=== PATIENT | female | born 1970 | race Caucasian/White ===

== ENCOUNTER 2016-12-15 09:12 | Inpatient (IN) | payer BC, MEDICAID ==
[2016-12-15] MEDS ORDERED: Iohexol 240 (50 ml) PO ONE (09:33)
[2016-12-15] MEDS ORDERED: Sodium Chloride 0.9% 1,000 ML IV SCH (09:45)
--- NOTE | 2016-12-15 09:53 | ED PDOC ---
HPI: Abdomen Time Seen by Provider: 12/15/16 09:20 Chief Complaint (Nursing): Fever Chief Complaint (Provider): Fever History Per: Patient, Family History/Exam Limitations: no limitations Onset/Duration Of Symptoms: Hrs Current Symptoms Are (Timing): Still Present Severity: Mild Quality Of Discomfort: "Pain" Associated Symptoms: Fever, Back Pain, Urinary Symptoms. denies: Nausea, Vomiting Exacerbating Factors: None Alleviating Factors: None Additional Complaint(s): Patient is a 46 year old female who presents to ED with family for evaluation of fever and abdominal pain at 0300 today. Patient had an abdominal mass removed from her right lower abdomen on 12/08/[address] Ledezma with drain placed. States taking Percocet as needed for pain but at 0300 developed increased pain and felt like she may have a fever, a Percocet tablet was taken at this time. As per family, surgeon was contacted who referred to ED for further evaluation. Family also reports that it appears the drain may have shifted a bit but continues to drain clear, no blood. Follow up appointment with surgeon is scheduled for tomorrow. No nausea, vomit, diarrhea, weakness, headaches, dizziness, chest pain, dyspnea. Has dysuria mild. PMD: Dr. Gastelum Surgeon: DR. Angel Ledezma [phone] As per discharge notes, patient received a laproscopic surgery to remove an inta -abdominal swelling, mass or lump, instructed to take Percocet Past Medical History Reviewed: Historical Data, Nursing Documentation, Vital Signs Vital Signs: Last Vital Signs Temp 100.1 F H 12/15/16 10:23 Pulse 112 H 12/15/16 10:23 Resp 18 12/15/16 10:23 BP 126/74 12/15/16 10:23 Pulse Ox 99 12/15/16 13:56 - Medical History PMH: Back Problems - Surgical History Surgical History: Back Surgery, Cholecystectomy, Other surgeries: abd surgery; ankle surgery - Family History Family History: States: Unknown Family Hx - Living Arrangements Living Arrangements: With Family - Immunization History Hx Tetanus Toxoid Vaccination: No Hx Influenza Vaccination: No Hx Pneumococcal Vaccination: No - Allergies Allergies/Adverse Reactions: Allergies Allergy/AdvReac Type Severity Reaction Status Date / Time No Known Allergies Allergy Verified 12/15/16 09:31 Review of Systems ROS Statement: Except As Marked, All Systems Reviewed And Found Negative Constitutional: Positive for: Fever Gastrointestinal: Positive for: Abdominal Pain. Negative for: Nausea, Vomiting , Diarrhea Genitourinary Female: Positive for: Dysuria. Negative for: Hematuria Musculoskeletal: Positive for: Back Pain Neurological: Negative for: Weakness, Numbness Physical Exam - Reviewed Nursing Documentation Reviewed: Yes Vital Signs Reviewed: Yes - Physical Exam Appears: Positive for: Uncomfortable Skin: Positive for: Normal Color, Warm. Negative for: Rash Eye Exam: Positive for: Normal appearance Neck: Positive for: Normal, Painless ROM Cardiovascular/Chest: Positive for: Regular Rate, Rhythm, Tachycardia. Negative for: Murmur Respiratory: Positive for: Normal Breath Sounds. Negative for: Respiratory Distress Gastrointestinal/Abdominal: Positive for: Soft, Tenderness (mild diffuse), Other (Drain in place RLQ with clear drainage (-) erythema (-) fluctuance (-) induration. Several laproscopic incision lower abdomen all clean, dry and intact with no surrounding erythema ). Negative for: Mass, Guarding, Rebound Back: Negative for: Normal Inspection, L CVA Tenderness, R CVA Tenderness Extremity: Positive for: Normal ROM. Negative for: Tenderness, Pedal Edema, Calf Tenderness Neurologic/Psych: Positive for: Alert, Oriented - Laboratory Results Result Diagrams: 12/15/16 10:10 12/15/16 10:10 Interpretation Of Abn Labs: 12.9 wbc; urine wbc - ECG ECG: Positive for: Interpreted By Me, Viewed By Me ECG Rhythm: Positive for: Normal QRS, Sinus Tachycardia O2 Sat by Pulse Oximetry: 99 (RA) Pulse Ox Interpretation: Normal - Radiology X-Ray: Interpreted by Me, Viewed By Me X-Ray Interpretation: No Acute Disease - Progress ED Course And Treament: 1354: Pt. pcp Dr. Wade Islas. Spoke Dr. Angel Ledezma. Pt. well known to him as he did the surgery. Made aware of all findings, presentation, and ct. States Ct findings and labs are likely post surgical. Recommends outpt. for cipro and flagyl or 24hrs of IV antibiotics of the same. 1401: Spoke with Dr. Craven. Will admit and give further orders when pt. reaches floor. Pt. lactate improved. Meets severe sepsis criteria. Cipro and flagyl. Stable. Will give morphine for pain. AAOx3. 1426: Stable. Dr. Mathews paged. Surgery resident also paged for consult. - Critical Care Total Time (In Min): 30 Documented Critical Care: Time excludes all time spent performint seperately billable procedures Medical Decision Making Medical Decision Making: Time: 929 Initial impression: Fever s/p surgery will work up for sepsis Initial plan: -- VBG -- CT-abdomen -- EKG -- CMP -- Magnesium -- Phosphorous -- Troponin -- Urine preg -- Urine dip -- CBC -- PT/PTT -- CXR -- NSF, Morphine -- Blood culture -- Urine culture -- Cardiac monitoring -- U/A Scribe Attestation: Documented by Meghan Brito acting as a scribe for Kulwinder Hernandez MD MD Scribe Attestation: All medical record entries made by the Scribe were at my direction and personally dictated by me. I have reviewed the chart and agree that the record accurately reflects my personal performance of the history, physical exam, medical decision making, and the department course for this patient. I have also personally directed, reviewed, and agree with the discharge instructions and disposition. Disposition - Clinical Impression Clinical Impression: Severe sepsis, Abdominal pain, Inflammation, UTI (urinary tract infection) - Patient ED Disposition Is Patient to be Admitted: Yes Counseled Patient/Family Regarding: Studies Performed, Diagnosis - Disposition Disposition Time: 14:09 Condition: FAIR - Pt Status Changed To: Hospital Disposition Of: Inpatient - Admit Certification Admit to Inpatient:: After my assessment, the patient will require hospitalization for at least two midnights. This is because of the severity of symptoms shown, intensity of services needed, and/or the medical risk in this patient being treated as an outpatient. - POA Present On Arrival: Surgical Site Infection
[2016-12-15 09:55] VITALS: BMI 25.7
[2016-12-15 10:11] LABS: VENOUS BLOOD GAS BASE EXCESS 2.8 mmol/L (0.0-2.0); VENOUS BLOOD GAS PCO2 40 mmHg (40-60); VENOUS BLOOD PH 7.44 (7.32-7.43)
--- NOTE | 2016-12-15 10:37 | CARD ---
APPROVED REPORT EKG Measurement Heart [id number] <Conclusion> Sinus tachycardia Otherwise normal ECG
[2016-12-15 10:40] LABS: BASO % 0.2 % (0.0-2.0); EOS # 0.7 K/uL (0.0-0.7); EOS % 5.4 % (0.0-4.0); HEMATOCRIT 37.9 % (34.0-47.0); LYMPH # 0.8 K/uL (1.0-4.3); LYMPH % 6.3 % (20.0-40.0); MEAN CELL VOLUME 81.7 fl (81.0-99.0); MEAN CORPUSCULAR HEMOGLOBIN 27.4 pg (27.0-31.0); MEAN CORPUSCULAR HGB CONC 33.5 g/dL (33.0-37.0); MEAN PLATELET VOLUME 7.9 fl (7.2-11.7); MONO # 0.8 K/uL (0.0-0.8); MONO % 6.4 % (0.0-10.0); NEUT # 10.5 K/uL (1.8-7.0); NEUT % 81.7 % (50.0-75.0); PLATELET COUNT 313 K/uL (130-400); RED CELL DISTRIBUTION WIDTH 13.3 % (11.5-14.5); WHITE BLOOD COUNT 12.9 K/uL (4.8-10.8)
[2016-12-15 11:01] LABS: PARTIAL THROMBOPLASTIN TIME 30.2 SECONDS (23.3-32.5)
[2016-12-15 11:08] LABS: ALB/GLOB RATIO 1.2 (1.0-2.1); ALKALINE PHOSPHATASE 95 U/L (38-126); ALT/SGPT 44 U/L (9-52); AST/SGOT 22 U/L (14-36); BILIRUBIN,TOTAL 0.5 mg/dl (0.2-1.3); BLOOD UREA NITROGEN 7 mg/dl (7-17); CALCIUM 9.7 mg/dL (8.4-10.2); CARBON DIOXIDE 23 mmol/L (22-30); CHLORIDE 100 mmol/L (98-107); GFR AFRICAN-AMERICAN > 60; GLUCOSE,RANDOM 100 mg/dL (65-105); MAGNESIUM 1.6 MG/DL (1.6-2.3); PHOSPHOROUS 3.7 mg/dl (2.5-4.5); POTASSIUM 3.7 MMOL/L (3.6-5.0); SODIUM 137 mmol/l (132-148); TOTAL PROTEIN 8.1 G/DL (6.3-8.2)
[2016-12-15 12:16] LABS: EOSINOPHIL 4 % (0-7); NEUTROPHIL 82 % (42-75); TOTAL CELLS COUNTED 100
[2016-12-15] MEDS ORDERED: Iohexol 300 50 ML ONE (12:17)
[2016-12-15] MEDS ORDERED: Sodium Chloride 0.9% 50 ML IV ONE (12:17)
[2016-12-15 12:46] LABS: URINE BILIRUBIN NEGATIVE (NEGATIVE); URINE BLOOD NEGATIVE (NEGATIVE); URINE COLOR YELLOW (YELLOW); URINE GLUCOSE (UA) NEG (Normal); URINE KETONE NEGATIVE (NEGATIVE); URINE LEUKOCYTE ESTERASE SMALL Leu/uL (Negative); URINE PROTEIN NEGATIVE (NEGATIVE); URINE UROBILINOGEN 0.2-1.0 mg/dL (0.2-1.0); WBC URINE 15 /hpf (0-5)
--- NOTE | 2016-12-15 13:33 | CT ---
PROCEDURE: CT Abdomen and Pelvis with contrast HISTORY: Postop abdominal pain. Relevant surgical history: Resection of presacral dermoid. COMPARISON: Preoperative examination 12/08/2015. TECHNIQUE: Contrast dose: 95 cc Omnipaque 300. Radiation dose: Total exam DLP = 1048.31 mGy-cm. This CT exam was performed using one or more of the following dose reduction techniques: Automated exposure control, adjustment of the mA and/or kV according to patient size, and/or use of iterative reconstruction technique. FINDINGS: LOWER THORAX: Small hiatal hernia. LIVER: Unremarkable. No gross lesion or ductal dilatation. GALLBLADDER AND BILE DUCTS: Unremarkable. PANCREAS: Unremarkable. No gross lesion or ductal dilatation. SPLEEN: Unremarkable. ADRENALS: Unremarkable. No mass. KIDNEYS AND URETERS: Unremarkable. No hydronephrosis. No solid mass. VASCULATURE: Unremarkable. No aortic aneurysm. BOWEL: Focal thickening of the wall of the rectum at at the surgical site. This appears to extend from the rectosigmoid junction over a distance of 5 cm. The anal rectal verge region is spared. APPENDIX: Normal appendix. PERITONEUM: Trace, loculated fluid in the cul-de-sac T uterus with posterior wall of the bladder and anterior wall of the rectum. This measures 2.9 x 1.8 cm. Hounsfield unit values 0.25 consistent with uncomplicated fluid. Surgical drain identified coursing from its insertion site right lower quadrant crossing the midline with the tip in the left hemipelvis. At the site of the catheter insertion into the peritoneum M better mild inflammatory changes in the fat adjacent to the cecum. No abnormalities with respect to the adjacent terminal ileum or appendix. LYMPH NODES: Unremarkable. No enlarged lymph nodes. BLADDER: Unremarkable. REPRODUCTIVE: Prior hysterectomy. BONES: OTHER FINDINGS: Postoperative findings in the presacral region status post resection of pelvic/ presacral mass. IMPRESSION: Postoperative findings in the abdomen and pelvis as described. Small collection of fluid in the cul-de-sac. Inflammatory changes in the postoperative bed circumferentially involving a short segment of the rectum. No proximal obstruction identified.
[2016-12-15 13:53] LABS: VENOUS BLOOD GAS BASE EXCESS 1.9 mmol/L (0.0-2.0); VENOUS BLOOD GAS PCO2 41 mmHg (40-60); VENOUS BLOOD PH 7.42 (7.32-7.43)
[2016-12-15] MEDS ORDERED: Ciprofloxacin 400mg/200ml D5W 400 MG/200 ML BAG IV STA (14:07)
[2016-12-15] MEDS ORDERED: metroNIDAZOLE 500mg/100ml NS 100 ML IV STA (14:07)
--- NOTE | 2016-12-15 14:32 | RAD ---
HISTORY: Sepsis Patient . Portable study 13:00. COMPARISON: No prior. FINDINGS: LUNGS: No active pulmonary disease. PLEURA: No significant pleural effusion identified, no pneumothorax apparent. CARDIOVASCULAR: Normal. OSSEOUS STRUCTURES: No significant abnormalities. VISUALIZED UPPER ABDOMEN: Normal. OTHER FINDINGS: None. IMPRESSION: No active disease.
--- NOTE | 2016-12-15 15:49 | CP.PCM.CON ---
<Beau Pham - Last Filed: 12/15/16 17:03> History of Present Illness - History of Present Illness History of Present Illness: General Surgery consult Note for Dr. Mathews CC: Abdominal Pain HPI: This is a 46F with no PMH who had an intrabdominal mass removed laparoscopicaly at [facility] 8 days ago. She was discharged with instruction to take percocet for pain. She is schedules for a followup appointment with her surgeon tomorrow. She presents today with abdominal pain per his discharge instruction to go to the ED if she has any pain. She denies any fevers at home. She is moving her bowels and passing flatus. CT abdomen was done in the ED which was significant for inflammation in the post operative bed involving a short segment of her rectum. She reports chest pain and shortness of breath this morning. Her troponins, EKG and chest X-ray are all negative for any acute processes. PMH: Denies PSH: , Cholecystectomy, oopherectomy, Intrabdominal mass removal, Cervical spine surgery, leg surgery ALL: Denies Social: Denies tobacco, ethanol, drugs Review of Systems - Constitutional Constitutional: absent: Anorexia, Chills - EENT Eyes: absent: Blurred Vision, Change in Vision Ears: absent: Ear Pain, Tinnitus Nose/Mouth/Throat: absent: Nasal Congestion, Nasal Discharge - Cardiovascular Cardiovascular: Chest Pain, Dyspnea - Respiratory Respiratory: Dyspnea - Gastrointestinal Gastrointestinal: Abdominal Pain, Nausea. absent: Change in Bowel Habits, Constipation, Loose Stools, Vomiting - Neurological Neurological: absent: Dizziness Past Patient History - Past Social History Smoking Status: Never Smoked - PSYCHIATRIC Hx Substance Use: No - SURGICAL HISTORY Hx Cholecystectomy: Yes - ANESTHESIA Hx Anesthesia: Yes Hx Anesthesia Reactions: No Meds Allergies/Adverse Reactions: Allergies Allergy/AdvReac Type Severity Reaction Status Date / Time No Known Allergies Allergy Verified 12/15/16 09:31 - Medications Medications: Current Medications Sodium Chloride (Sodium Chloride 0.9%) 1,000 mls @ 1,000 mls/hr IV .Q1H MANPREET Last Admin: 12/15/16 09:56 Dose: 1,000 mls/hr Physical Exam - Constitutional Appears: Non-toxic, No Acute Distress - Head Exam Head Exam: ATRAUMATIC, NORMOCEPHALIC - Eye Exam Eye Exam: EOMI - ENT Exam ENT Exam: Mucous Membranes Moist - Respiratory Exam Respiratory Exam: NORMAL BREATHING PATTERN - Cardiovascular Exam Cardiovascular Exam: REGULAR RHYTHM - GI/Abdominal Exam GI & Abdominal Exam: Soft, Tenderness. absent: Distended, Firm, Guarding, Hernia, Rebound, Rigid Additional comments: Port sites well aproximated non erythematous, Right sided TIGRE drain in place with serous output in drain and purulend drainage around the drain - Extremities Exam Extremities exam: Positive for: normal inspection - Neurological Exam Neurological exam: Alert - Psychiatric Exam Psychiatric exam: Normal Affect, Normal Mood - Skin Skin Exam: Dry, Intact Results - Vital Signs Recent Vital Signs: Last Vital Signs Temp 100.1 F H 12/15/16 10:23 Pulse 112 H 12/15/16 10:23 Resp 18 12/15/16 10:23 BP 126/74 12/15/16 10:23 Pulse Ox 99 12/15/16 14:27 - Labs Result Diagrams: 12/15/16 10:10 12/15/16 10:10 Labs: Laboratory Results - last 24 hr 12/15/16 12/15/16 12:28 13:50 pO2 33 VBG pH 7.42 VBG pCO2 41 VBG HCO3 25.5 VBG Total CO2 27.9 VBG O2 Sat (Calc) 73.1 H VBG Base Excess 1.9 VBG Potassium 3.6 A-a O2 Difference 65.0 Sodium 133.0 Chloride 101.0 Glucose 96 Lactate 1.8 FiO2 21.0 Crit Value Called To Dr сергей spangler Crit Value Called By 15 Crit Value Read Back Y Blood Gas Notified Time 1352 Venous Blood Potassium 3.6 Urine Color Yellow Urine Clarity Slighty-cloudy Urine pH 6.0 Ur Specific [place] 1.010 Urine Protein Negative Urine Glucose (UA) Neg Urine Ketones Negative Urine Blood Negative Urine Nitrate Negative Urine Bilirubin Negative Urine Urobilinogen 0.2-1.0 Ur Leukocyte Esterase Small Urine Microscopic WBC 15 H Ur Squamous Epith Cells 19 H - Imaging and Cardiology CT scan - abdomen Status: Image reviewed by me, Report reviewed by me Assessment & Plan - Assessment and Plan (Free Text) Assessment: This is a 46F who is s/p laparoscopic surgery presenting with post operative pain CT scan significant for surgical site inflammatory changes Afebrile, WBC 12.9, Tachycardic at 112bpm IV ABX, ain control Bedside evacuation of purulent exhudate Will discuss with Dr. Mathews Beau Pham PGY-4 <Tone Mathews - Last Filed: 12/19/16 19:00> Meds - Medications Medications: Current Medications Acetaminophen (Tylenol 325mg Tab) 325 mg PO Q6 PRN PRN Reason: Fever >100.4 F Last Admin: 12/17/16 01:41 Dose: 325 mg Diphenhydramine HCl (Benadryl) 25 mg IVP Q6H PRN PRN Reason: Itching / Pruritus Last Admin: 12/19/16 14:15 Dose: 25 mg Enoxaparin Sodium (Lovenox) 40 mg SC DAILY MANPREET PRN Reason: Protocol Last Admin: 12/19/16 08:24 Dose: 40 mg Hydromorphone HCl (Dilaudid) 1 mg IVP Q3H PRN PRN Reason: Pain, moderate (4-7) Last Admin: 12/19/16 18:49 Dose: 1 mg Metronidazole (Flagyl 500mg/100ml Ns) 100 mls @ 100 mls/hr IVPB Q8 [facility] Last Admin: 12/19/16 17:09 Dose: 100 mls/hr Lactated Ringer's (Lactated Ringer's) 1,000 mls @ 75 mls/hr IV .[id number] [facility] Last Admin: 12/19/16 09:31 Dose: 75 mls/hr Piperacillin Sod/Tazobactam (Sod 3.375 gm/ Sodium Chloride) 100 mls @ 100 mls/ hr IVPB Q8 [facility] Last Admin: 12/19/16 16:08 Dose: 100 mls/hr Ketorolac Tromethamine (Toradol) 30 mg IVP Q6 [facility] Stop: 12/21/16 16:00 Last Admin: 12/19/16 16:09 Dose: Not Given Results - Vital Signs Recent Vital Signs: Last Vital Signs Temp 99.0 F 12/19/16 15:52 Pulse 86 12/19/16 15:52 Resp 18 12/19/16 15:52 BP 115/76 12/19/16 15:52 Pulse Ox 96 12/19/16 15:52 - Labs Result Diagrams: 12/19/16 06:30 12/19/16 06:30 Labs: Laboratory Results - last 24 hr 12/19/16 12/19/16 06:30 06:30 WBC 9.1 RBC 3.74 L Hgb 10.1 L Hct 30.9 L MCV 82.6 MCH 27.0 MCHC 32.6 L RDW 13.4 Plt Count 335 Sodium 140 Potassium 3.5 L Chloride 103 Carbon Dioxide 29 Anion Gap 12 BUN 6 L Creatinine 0.5 L Est GFR ( Amer) > 60 Est GFR (Non-Af Amer) > 60 Random Glucose 97 Calcium 8.4 Total Bilirubin 0.2 AST 20 ALT 25 Alkaline Phosphatase 71 Total Protein 6.0 L Albumin 2.9 L Globulin 3.1 Albumin/Globulin Ratio 0.9 L Attending/Attestation - Attestation I have personally seen and examined this patient.: Yes I have fully participated in the care of the patient.: Yes I have reviewed all pertinent clinical information: Yes Notes (Text): 12/19/16 18:58 Pt was seen and examined at bedside on 12/15/16 Agree with above note and assessment Pt with Sepsis with Abdominal wall Cellulitis IV antibiotic Labs and radiology reviewed Repeat CBC in am Plan d/w pt and ER physician in detail. Risk and benefit explained in detail.
[2016-12-15] MEDS ORDERED: Ciprofloxacin 400mg/200ml D5W 400 MG/200 ML BAG IVPB ONE (16:05)
[2016-12-15] MEDS ORDERED: Bupivacaine-Epi 0.5%-1:200,000 PF Inj IJ ONE (17:03)
[2016-12-15] MEDS ORDERED: Lidocaine 2% w Epi 1:100,000 Inj IJ ONE (17:05)
[2016-12-15] MEDS ORDERED: Lidocaine/Epi 1% 1:100000 20 ML IJ ONE (17:06)
[2016-12-15] MEDS ORDERED: metroNIDAZOLE 500mg/100ml NS 100 ML IVPB ONE (18:40)
[2016-12-16] MEDS ORDERED: Sodium Chloride 0.9% 1,000 ML IV ONE (00:04)
[2016-12-16] MEDS: metroNIDAZOLE 500mg/100ml NS 100 ML IVPB SCH ×3 (01:50→17:47)
--- NOTE | 2016-12-16 07:50 | CP.PCM.PN ---
<Milo Auguste - Last Filed: 12/16/16 13:48> Subjective - Date & Time of Evaluation Date of Evaluation: 12/16/16 Time of Evaluation: 07:48 - Subjective Subjective: Patient seen and examined this morning. Currently patient complaining of some abdominal pain, well controlled with pain medication. Tmax: 102.9F. No active purulent drainage from around drain site. However there skin around drain site is erythematous, will incise and drain. Objective - Vital Signs/Intake and Output Vital Signs (last 24 hours): Temp Pulse Resp BP Pulse Ox 99.2 F 109 H 22 104/67 99 12/16/16 05:15 12/16/16 05:15 12/16/16 05:15 12/16/16 05:15 12/16/16 05:15 - Medications Medications: Current Medications Acetaminophen (Tylenol 325mg Tab) 325 mg PO Q6 PRN PRN Reason: Fever >100.4 F Last Admin: 12/16/16 00:00 Dose: 325 mg Sodium Chloride (Sodium Chloride 0.9%) 1,000 mls @ 1,000 mls/hr IV .Q1H MANPREET Last Admin: 12/15/16 09:56 Dose: 1,000 mls/hr Metronidazole (Flagyl 500mg/100ml Ns) 100 mls @ 100 mls/hr IVPB Q8 [facility] Last Admin: 12/16/16 01:50 Dose: 100 mls/hr Meropenem 1 gm/ Sodium (Chloride) 100 mls @ 100 mls/hr IVPB Q8 [facility] Vancomycin HCl 1 gm/ Sodium (Chloride) 250 mls @ 166.667 mls/hr IVPB STAT STA Stop: 12/16/16 08:12 Last Admin: 12/16/16 06:51 Dose: 166.667 mls/hr Sodium Chloride (Sodium Chloride 0.9%) 1,000 mls @ 150 mls/hr IV .[id number] [facility] Stop: 12/17/16 06:45 Morphine Sulfate (Morphine) 4 mg IVP Q6 PRN PRN Reason: Pain, severe (8-10) Last Admin: 12/15/16 22:57 Dose: 4 mg - Labs Labs: PT 10.5 SECONDS (9.6-11.2) 12/15/16 10:10 INR 1.01 (0.92-1.08) 12/15/16 10:10 APTT 30.2 SECONDS (23.3-32.5) 12/15/16 10:10 - Constitutional Appears: No Acute Distress - Head Exam Head Exam: NORMOCEPHALIC - Eye Exam Eye Exam: Normal appearance - ENT Exam ENT Exam: Mucous Membranes Moist - Respiratory Exam Respiratory Exam: NORMAL BREATHING PATTERN - Cardiovascular Exam Cardiovascular Exam: Tachycardia, +S1, +S2 - GI/Abdominal Exam GI & Abdominal Exam: Soft, Tenderness Additional comments: Drain contains dark zacarias fluid Assessment and Plan - Assessment and Plan (Free Text) Assessment: 46F s/p removal of sacro-coccygeal teratoma, presents with fever, abdominal pain , and drain site cellulitis Plan: -I&D at drain site -F/u repeat UA, f/u blair cultures -C/w Abx as per ID -Tylenol prn for fever -Monitor drain output -F/u AM labs -D/w Dr. Mathews <Tone Mathews - Last Filed: 12/19/16 19:06> Objective - Vital Signs/Intake and Output Vital Signs (last 24 hours): Temp Pulse Resp BP Pulse Ox 99.0 F 86 18 115/76 96 12/19/16 15:52 12/19/16 15:52 12/19/16 15:52 12/19/16 15:52 12/19/16 15:52 - Medications Medications: Current Medications Acetaminophen (Tylenol 325mg Tab) 325 mg PO Q6 PRN PRN Reason: Fever >100.4 F Last Admin: 12/17/16 01:41 Dose: 325 mg Diphenhydramine HCl (Benadryl) 25 mg IVP Q6H PRN PRN Reason: Itching / Pruritus Last Admin: 12/19/16 14:15 Dose: 25 mg Enoxaparin Sodium (Lovenox) 40 mg SC DAILY MANPREET PRN Reason: Protocol Last Admin: 12/19/16 08:24 Dose: 40 mg Hydromorphone HCl (Dilaudid) 1 mg IVP Q3H PRN PRN Reason: Pain, moderate (4-7) Last Admin: 12/19/16 18:49 Dose: 1 mg Metronidazole (Flagyl 500mg/100ml Ns) 100 mls @ 100 mls/hr IVPB Q8 [facility] Last Admin: 12/19/16 17:09 Dose: 100 mls/hr Lactated Ringer's (Lactated Ringer's) 1,000 mls @ 75 mls/hr IV .[id number] [facility] Last Admin: 12/19/16 09:31 Dose: 75 mls/hr Piperacillin Sod/Tazobactam (Sod 3.375 gm/ Sodium Chloride) 100 mls @ 100 mls/ hr IVPB Q8 [facility] Last Admin: 12/19/16 16:08 Dose: 100 mls/hr Ketorolac Tromethamine (Toradol) 30 mg IVP Q6 [facility] Stop: 12/21/16 16:00 Last Admin: 12/19/16 16:09 Dose: Not Given - Labs Labs: 12/19/16 06:30 12/19/16 06:30 PT 10.5 SECONDS (9.6-11.2) 12/15/16 10:10 INR 1.01 (0.92-1.08) 12/15/16 10:10 APTT 30.2 SECONDS (23.3-32.5) 12/15/16 10:10 Attending/Attestation - Attestation I have personally seen and examined this patient.: Yes I have fully participated in the care of the patient.: Yes I have reviewed all pertinent clinical information, including history, physical exam and plan: Yes Notes (Text): 12/19/16 19:04 Pt was seen and examined at bedside on 12/16/16 Agree with above note and assessment Pt is s/p Pelvic teratoma removal with abdominal wall cellulitis at drain site Repeat CT Scan in am in WBC does not improve Repeat CBC and BMP ID consult Pt still has high fever NPO, IVF Plan d/w pt in detail. Risk and benefit explained in detail.
[2016-12-16] MEDS ORDERED: Ciprofloxacin 400mg/200ml D5W 400 MG/200 ML BAG IVPB SCH (09:00)
[2016-12-16 09:15] LABS: BASO % 0.2 % (0.0-2.0); EOS # 0.8 K/uL (0.0-0.7); EOS % 4.9 % (0.0-4.0); HEMATOCRIT 35.3 % (34.0-47.0); LYMPH # 0.7 K/uL (1.0-4.3); LYMPH % 4.4 % (20.0-40.0); MEAN CELL VOLUME 82.6 fl (81.0-99.0); MEAN CORPUSCULAR HEMOGLOBIN 26.9 pg (27.0-31.0); MEAN CORPUSCULAR HGB CONC 32.6 g/dL (33.0-37.0); MEAN PLATELET VOLUME 8.2 fl (7.2-11.7); MONO # 1.1 K/uL (0.0-0.8); MONO % 6.7 % (0.0-10.0); NEUT # 13.4 K/uL (1.8-7.0); NEUT % 83.8 % (50.0-75.0); NRBC % 0.1 % (0.0-0.0); RED CELL DISTRIBUTION WIDTH 13.5 % (11.5-14.5)
[2016-12-16] MEDS: Meropenem 1 GM in Sodium Chloride 0.9% 100 ML IVPB SCH ×2 (09:20→17:46)
[2016-12-16 09:39] LABS: ALB/GLOB RATIO 1.2 (1.0-2.1); ALKALINE PHOSPHATASE 97 U/L (38-126); ALT/SGPT 41 U/L (9-52); AST/SGOT 25 U/L (14-36); BILIRUBIN,TOTAL 0.7 mg/dl (0.2-1.3); BLOOD UREA NITROGEN 10 mg/dl (7-17); CALCIUM 8.8 mg/dL (8.4-10.2); CARBON DIOXIDE 22 mmol/L (22-30); CHLORIDE 100 mmol/L (98-107); GFR AFRICAN-AMERICAN > 60; GLUCOSE,RANDOM 77 mg/dL (65-105); POTASSIUM 2.8 MMOL/L (3.6-5.0); SODIUM 138 mmol/l (132-148)
[2016-12-16] MEDS: Potassium CL 10 MEQ/50 ML 50 ML IVPB SCH ×4 (11:27→16:28)
[2016-12-16] MEDS: Sodium Chloride 0.9% 1,000 ML IV SCH ×2 (11:39→13:00)
[2016-12-16 11:55] LABS: MAGNESIUM 1.7 MG/DL (1.6-2.3); PHOSPHOROUS 3.5 mg/dl (2.5-4.5); POTASSIUM 3.5 MMOL/L (3.6-5.0)
[2016-12-16] MEDS ORDERED: Lidocaine 1% Inj (20ml) IJ ONE (12:50)
--- NOTE | 2016-12-16 14:54 | CP.PCM.HP ---
History of Present Illness - History of Present Illness History of Present Illness: 46 female w/ no PMHx presented to the ED with abdominal pain and fever. Patient had recent intrabdominal mass removed laparoscopicaly at [place] 8 days ago discharged with percocet for pain. Flatus present, able to move BM. CT abdomen was completed in ED. ED physician contacted surgeon. Patient was seen and examined with attending. Patient still continues to have abdominal pain. Fever persists (Tmax 102.9). Denies chest pain, headache, chills, diarrhea, nausea/ vomiting. PMD: Dr. Gastelum Surgeon: Dr. Angel Ledezma [phone] PMHx: Denies PSHx: , Cholecystectomy, oopherectomy, Intrabdominal mass removal, Cervical spine surgery, leg surgery Allergies: Denies Social: Denies tobacco, etoh, drugs Present on Admission - Present on Admission Any Indicators Present on Admission: No Review of Systems - Review of Systems All systems: reviewed and no additional remarkable complaints except (mentioned in HPI) Past Patient History - Past Medical History & Family History Past Medical History?: No - Past Social History Smoking Status: Never Smoked - MUSCULOSKELETAL/RHEUMATOLOGICAL Hx Falls: No - PSYCHIATRIC Hx Substance Use: No - SURGICAL HISTORY Hx Surgeries: Yes Hx Section: Yes Hx Cholecystectomy: Yes Other/Comment: bilateral ankle sx - ANESTHESIA Hx Anesthesia: Yes Hx Anesthesia Reactions: No Meds Allergies/Adverse Reactions: Allergies Allergy/AdvReac Type Severity Reaction Status Date / Time No Known Allergies Allergy Verified 12/15/16 09:31 Physical Exam - Constitutional Appears: Well, No Acute Distress - Head Exam Head Exam: ATRAUMATIC, NORMAL INSPECTION - Eye Exam Eye Exam: Normal appearance - Neck Exam Neck exam: Positive for: Normal Inspection - Respiratory Exam Respiratory Exam: Clear to Auscultation Bilateral, NORMAL BREATHING PATTERN. absent: Decreased Breath Sounds, Rhonchi, Wheezes - Cardiovascular Exam Cardiovascular Exam: REGULAR RHYTHM, RRR, +S1, +S2 - GI/Abdominal Exam GI & Abdominal Exam: Normal Bowel Sounds, Soft, Tenderness (radames-incisionally) Additional comments: wound dressing, clean dry and intact - Extremities Exam Extremities exam: Positive for: normal inspection - Neurological Exam Neurological exam: Alert, Oriented x3 - Psychiatric Exam Psychiatric exam: Normal Affect, Normal Mood - Skin Skin Exam: Dry, Intact, Normal Color, Warm Results - Vital Signs Recent Vital Signs: Last Vital Signs Temp 99.4 F 12/16/16 13:11 Pulse 104 H 12/16/16 12:33 Resp 18 12/16/16 12:33 BP 94/55 L 12/16/16 12:33 Pulse Ox 96 12/16/16 12:33 - Labs Result Diagrams: 12/16/16 07:00 12/16/16 11:30 Labs: Laboratory Results - last 24 hr 12/16/16 12/16/16 12/16/16 07:00 07:00 11:30 WBC 16.0 H RBC 4.28 Hgb 11.5 L Hct 35.3 MCV 82.6 MCH 26.9 L MCHC 32.6 L RDW 13.5 Plt Count 312 MPV 8.2 Neut % (Auto) 83.8 H Lymph % (Auto) 4.4 L Coleman % (Auto) 6.7 Eos % (Auto) 4.9 H Baso % (Auto) 0.2 Neut # 13.4 H Lymph # 0.7 L Coleman # 1.1 H Eos # 0.8 H Baso # 0.0 Sodium 138 Potassium 2.8 L 3.5 L Chloride 100 Carbon Dioxide 22 Anion Gap 19 BUN 10 Creatinine 0.8 Est GFR ( Amer) > 60 Est GFR (Non-Af Amer) > 60 Random Glucose 77 Calcium 8.8 Phosphorus 3.5 Magnesium 1.7 Total Bilirubin 0.7 AST 25 ALT 41 Alkaline Phosphatase 97 Total Protein 7.0 Albumin 3.8 Globulin 3.2 Albumin/Globulin Ratio 1.2 Assessment & Plan (1) Sepsis Assessment and Plan: Continues to have abdominal pain and fever Lactate/SBP does not meet severe sepsis criteria, likely source of infection is wound C/w Abx as per ID (flagyl/meropenem) Aggressive fluid hydration f/u repeat UA, f/u blair cultures Tylenol prn for fever F/u AM labs Status: Acute (2) Abdominal pain Assessment and Plan: 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
--- NOTE | 2016-12-16 19:33 | CP.PCM.CON ---
History of Present Illness - History of Present Illness History of Present Illness: empiric iv rx started + Pus from TIGRE drain may need further drainage 46F with no PMH who had an intrabdominal mass removed laparoscopicaly at [place] 8 days ago. She was discharged with instruction to take percocet for pain. She is schedules for a followup appointment with her surgeon tomorrow. She presents today with abdominal pain per his discharge instruction to go to the ED if she has any pain. She denies any fevers at home. She is moving her bowels and passing flatus. CT abdomen was done in the ED which was significant for inflammation in the post operative bed involving a short segment of her rectum. She reports chest pain and shortness of breath this morning. Her troponins, EKG and chest X-ray are all negative for any acute processes. PMH: Denies PSH: , Cholecystectomy, oopherectomy, Intrabdominal mass removal, Cervical spine surgery, leg surgery ALL: Denies Social: Denies tobacco, ethanol, drugs Past Patient History - Past Medical History & Family History Past Medical History?: No - Past Social History Smoking Status: Never Smoked - MUSCULOSKELETAL/RHEUMATOLOGICAL Hx Falls: No - PSYCHIATRIC Hx Substance Use: No - SURGICAL HISTORY Hx Surgeries: Yes Hx Section: Yes Hx Cholecystectomy: Yes Other/Comment: bilateral ankle sx - ANESTHESIA Hx Anesthesia: Yes Hx Anesthesia Reactions: No Meds Allergies/Adverse Reactions: Allergies Allergy/AdvReac Type Severity Reaction Status Date / Time No Known Allergies Allergy Verified 12/15/16 09:31 - Medications Medications: Current Medications Acetaminophen (Tylenol 325mg Tab) 325 mg PO Q6 PRN PRN Reason: Fever >100.4 F Last Admin: 12/16/16 18:56 Dose: 325 mg Enoxaparin Sodium (Lovenox) 40 mg SC DAILY [facility] PRN Reason: Protocol Sodium Chloride (Sodium Chloride 0.9%) 1,000 mls @ 1,000 mls/hr IV .Q1H [facility] Last Admin: 12/15/16 09:56 Dose: 1,000 mls/hr Metronidazole (Flagyl 500mg/100ml Ns) 100 mls @ 100 mls/hr IVPB Q8 [facility] Last Admin: 12/16/16 17:47 Dose: 100 mls/hr Meropenem 1 gm/ Sodium (Chloride) 100 mls @ 100 mls/hr IVPB Q8 [facility] Last Admin: 12/16/16 17:46 Dose: 100 mls/hr Sodium Chloride (Sodium Chloride 0.9%) 1,000 mls @ 150 mls/hr IV .Q6H40M [facility] Stop: 12/17/16 06:45 Last Admin: 12/16/16 11:39 Dose: 150 mls/hr Morphine Sulfate (Morphine) 4 mg IVP Q6 PRN PRN Reason: Pain, severe (8-10) Last Admin: 12/16/16 11:25 Dose: 4 mg Results - Vital Signs Recent Vital Signs: Last Vital Signs Temp 100.9 F H 12/16/16 18:56 Pulse 103 H 12/16/16 16:00 Resp 20 12/16/16 16:00 BP 119/75 12/16/16 16:00 Pulse Ox 98 12/16/16 16:00 - Labs Result Diagrams: 12/16/16 07:00 12/16/16 11:30 Labs: Laboratory Results - last 24 hr 12/16/16 12/16/16 12/16/16 07:00 07:00 11:30 WBC 16.0 H RBC 4.28 Hgb 11.5 L Hct 35.3 MCV 82.6 MCH 26.9 L MCHC 32.6 L RDW 13.5 Plt Count 312 MPV 8.2 Neut % (Auto) 83.8 H Lymph % (Auto) 4.4 L Sevier % (Auto) 6.7 Eos % (Auto) 4.9 H Baso % (Auto) 0.2 Neut # 13.4 H Lymph # 0.7 L Sevier # 1.1 H Eos # 0.8 H Baso # 0.0 Sodium 138 Potassium 2.8 L 3.5 L Chloride 100 Carbon Dioxide 22 Anion Gap 19 BUN 10 Creatinine 0.8 Est GFR ( Amer) > 60 Est GFR (Non-Af Amer) > 60 Random Glucose 77 Calcium 8.8 Phosphorus 3.5 Magnesium 1.7 Total Bilirubin 0.7 AST 25 ALT 41 Alkaline Phosphatase 97 Total Protein 7.0 Albumin 3.8 Globulin 3.2 Albumin/Globulin Ratio 1.2
[2016-12-17] MEDS: Sodium Chloride 0.9% 1,000 ML IV SCH (00:27)
[2016-12-17] MEDS: metroNIDAZOLE 500mg/100ml NS 100 ML IVPB SCH ×2 (00:28→08:43)
[2016-12-17] MEDS: Meropenem 1 GM in Sodium Chloride 0.9% 100 ML IVPB SCH ×2 (00:34→08:44)
[2016-12-17 06:47] LABS: HEMATOCRIT 33.1 % (34.0-47.0); MEAN CELL VOLUME 83.5 fl (81.0-99.0); MEAN CORPUSCULAR HGB CONC 32.4 g/dL (33.0-37.0); RED CELL DISTRIBUTION WIDTH 13.5 % (11.5-14.5)
[2016-12-17] MEDS ORDERED: HYDROmorphone 0.5 mg/0.5 ml ISec IVP PRN (07:18)
[2016-12-17] MEDS ORDERED: Iohexol 240 (50 ml) PO ONE (07:20)
[2016-12-17 07:24] LABS: ALKALINE PHOSPHATASE 95 U/L (38-126); ALT/SGPT 28 U/L (9-52); AST/SGOT 15 U/L (14-36); BILIRUBIN,TOTAL 0.3 mg/dl (0.2-1.3); BLOOD UREA NITROGEN 10 mg/dl (7-17); CALCIUM 8.9 mg/dL (8.4-10.2); CARBON DIOXIDE 23 mmol/L (22-30); CHLORIDE 107 mmol/L (98-107); GFR AFRICAN-AMERICAN > 60; GLUCOSE,RANDOM 102 mg/dL (65-105); POTASSIUM 3.6 MMOL/L (3.6-5.0); SODIUM 140 mmol/l (132-148); TOTAL PROTEIN 6.6 G/DL (6.3-8.2)
[2016-12-17 07:31] LABS: ALB/GLOB RATIO 1.1 (1.0-2.1)
--- NOTE | 2016-12-17 08:00 | CP.PCM.PN ---
<Milo Auguste - Last Filed: 12/17/16 08:02> Subjective - Date & Time of Evaluation Date of Evaluation: 12/17/16 Time of Evaluation: 07:15 - Subjective Subjective: Patient seen and examined this morning. Reports worsening abdominal pain. Tmax 101.9. WBC remains unchanged. Will order Abd & Pelvis CT. Will monitor closely. Objective - Vital Signs/Intake and Output Vital Signs (last 24 hours): Temp Pulse Resp BP Pulse Ox 98.5 F 85 18 105/68 96 12/17/16 05:55 12/17/16 05:55 12/17/16 05:55 12/17/16 05:55 12/17/16 05:55 Intake and Output: 12/17/16 12/17/16 06:59 18:59 Intake Total 1700 Balance 1700 - Medications Medications: Current Medications Acetaminophen (Tylenol 325mg Tab) 325 mg PO Q6 PRN PRN Reason: Fever >100.4 F Last Admin: 12/17/16 01:41 Dose: 325 mg Enoxaparin Sodium (Lovenox) 40 mg SC DAILY [facility] PRN Reason: Protocol Hydromorphone HCl (Dilaudid) 0.5 mg IVP Q4H PRN PRN Reason: Pain, moderate (4-7) Stop: 12/19/16 07:19 Sodium Chloride (Sodium Chloride 0.9%) 1,000 mls @ 1,000 mls/hr IV .Q1H [facility] Last Admin: 12/15/16 09:56 Dose: 1,000 mls/hr Metronidazole (Flagyl 500mg/100ml Ns) 100 mls @ 100 mls/hr IVPB Q8 [facility] Last Admin: 12/17/16 00:28 Dose: 100 mls/hr Meropenem 1 gm/ Sodium (Chloride) 100 mls @ 100 mls/hr IVPB Q8 [facility] Last Admin: 12/17/16 00:34 Dose: 100 mls/hr Vancomycin HCl 1 gm/ Sodium (Chloride) 250 mls @ 166.667 mls/hr IVPB Q12H [facility] Last Admin: 12/16/16 20:48 Dose: 166.667 mls/hr Ketorolac Tromethamine (Toradol) 30 mg IVP Q6 PRN PRN Reason: Pain, severe (8-10) - Labs Labs: 12/17/16 05:50 12/17/16 05:50 PT 10.5 SECONDS (9.6-11.2) 12/15/16 10:10 INR 1.01 (0.92-1.08) 12/15/16 10:10 APTT 30.2 SECONDS (23.3-32.5) 12/15/16 10:10 - Constitutional Appears: Chronically Ill - Head Exam Head Exam: NORMOCEPHALIC - Eye Exam Eye Exam: Normal appearance - ENT Exam ENT Exam: Mucous Membranes Moist - Respiratory Exam Respiratory Exam: NORMAL BREATHING PATTERN - Cardiovascular Exam Cardiovascular Exam: +S1, +S2 - GI/Abdominal Exam GI & Abdominal Exam: Tenderness. absent: Firm, Rigid - Extremities Exam Extremities Exam: absent: Pedal Edema - Neurological Exam Neurological Exam: Alert, Awake, Oriented x3 - Psychiatric Exam Psychiatric exam: Anxious - Skin Skin Exam: Normal Color, Warm Assessment and Plan - Assessment and Plan (Free Text) Assessment: 46F s/p removal of sacro-coccygeal teratoma, presents with fever, abdominal pain , and drain site cellulitis Plan: -F/u Abd & Pelvis CT scan w/ PO & IV contrast -Blood cultures negative x2 -C/w Abx as per ID -Tylenol prn for fever -C/w analgesic, Dilaudid 0.5mg Q4H prn -Monitor drain output -WBC remains unchanged -Serial abdominal exams -D/w Dr. Mathews <Tone Mathews - Last Filed: 12/19/16 19:08> Objective - Vital Signs/Intake and Output Vital Signs (last 24 hours): Temp Pulse Resp BP Pulse Ox 99.0 F 86 18 115/76 96 12/19/16 15:52 12/19/16 15:52 12/19/16 15:52 12/19/16 15:52 12/19/16 15:52 - Medications Medications: Current Medications Acetaminophen (Tylenol 325mg Tab) 325 mg PO Q6 PRN PRN Reason: Fever >100.4 F Last Admin: 12/17/16 01:41 Dose: 325 mg Diphenhydramine HCl (Benadryl) 25 mg IVP Q6H PRN PRN Reason: Itching / Pruritus Last Admin: 12/19/16 14:15 Dose: 25 mg Enoxaparin Sodium (Lovenox) 40 mg SC DAILY [facility] PRN Reason: Protocol Last Admin: 12/19/16 08:24 Dose: 40 mg Hydromorphone HCl (Dilaudid) 1 mg IVP Q3H PRN PRN Reason: Pain, moderate (4-7) Last Admin: 12/19/16 18:49 Dose: 1 mg Metronidazole (Flagyl 500mg/100ml Ns) 100 mls @ 100 mls/hr IVPB Q8 [facility] Last Admin: 12/19/16 17:09 Dose: 100 mls/hr Lactated Ringer's (Lactated Ringer's) 1,000 mls @ 75 mls/hr IV .Q34N39C [facility] Last Admin: 12/19/16 09:31 Dose: 75 mls/hr Piperacillin Sod/Tazobactam (Sod 3.375 gm/ Sodium Chloride) 100 mls @ 100 mls/ hr IVPB Q8 [facility] Last Admin: 12/19/16 16:08 Dose: 100 mls/hr Ketorolac Tromethamine (Toradol) 30 mg IVP Q6 [facility] Stop: 12/21/16 16:00 Last Admin: 12/19/16 16:09 Dose: Not Given - Labs Labs: 12/19/16 06:30 12/19/16 06:30 PT 10.5 SECONDS (9.6-11.2) 12/15/16 10:10 INR 1.01 (0.92-1.08) 12/15/16 10:10 APTT 30.2 SECONDS (23.3-32.5) 12/15/16 10:10 Attending/Attestation - Attestation I have personally seen and examined this patient.: Yes I have fully participated in the care of the patient.: Yes I have reviewed all pertinent clinical information, including history, physical exam and plan: Yes Notes (Text): 12/19/16 19:06 Pt was seen and examined at bedside on 12/17/16 Agree with above note and assessment Pt is s/p Pelvic teratoma removal with abdominal wall cellulitis at drain site Pt still has high fever Repeat CT scan is suggestive of increased wall cellulitis and intraabdominal inflammatory process OR for Exploratory laparoscopy and possible bowel resection Consent NPO, IVF Plan d/w pt in detail. Risk and benefit explained in detail
[2016-12-17 09:06] LABS: RBC URINE 1 /hpf (0-3); URINE BACTERIA MOD (<OCC); URINE BILIRUBIN NEGATIVE (NEGATIVE); URINE BLOOD NEGATIVE (NEGATIVE); URINE COLOR AMBER (YELLOW); URINE GLUCOSE (UA) 50 mg/dL (Normal); URINE KETONE TRACE mg/dL (NEGATIVE); URINE LEUKOCYTE ESTERASE NEG Leu/uL (Negative); URINE PROTEIN 30 mg/dL (NEGATIVE); URINE UROBILINOGEN 0.2-1.0 mg/dL (0.2-1.0); WBC URINE 5 /hpf (0-5)
[2016-12-17] MEDS ORDERED: Iohexol 300 100 ML IJ ONE (12:00)
[2016-12-17] MEDS ORDERED: Sodium Chloride 0.9% 50 ML IV ONE (12:00)
[2016-12-17] MEDS ORDERED: Lactated Ringer's 1,000 ML IV ONE ×2 (12:05)
--- NOTE | 2016-12-17 12:59 | CT ---
PROCEDURE: CT Abdomen and Pelvis with contrast HISTORY: abd pain COMPARISON: 12/15/2016 TECHNIQUE: Contrast dose: 95 mL Omnipaque 300 Radiation dose: Total exam DLP = 995.65 mGy-cm. This CT exam was performed using one or more of the following dose reduction techniques: Automated exposure control, adjustment of the mA and/or kV according to patient size, and/or use of iterative reconstruction technique. FINDINGS: LOWER THORAX: Unremarkable. LIVER: Unremarkable. No gross lesion or ductal dilatation. GALLBLADDER AND BILE DUCTS: Unremarkable. PANCREAS: Unremarkable. No gross lesion or ductal dilatation. SPLEEN: Unremarkable. ADRENALS: Unremarkable. No mass. KIDNEYS AND URETERS: Unremarkable. No hydronephrosis. No solid mass. VASCULATURE: Unremarkable. No aortic aneurysm. BOWEL: No bowel obstruction. Adjacent to the tip of the appendix) series 3, image 132) there is a small fluid collection measuring approximately 1.6 x 3.2 cm. This may represent a small abscess or may be a small collection of fluid that is draining to the cul-de-sac where there is a larger fluid collection as on prior examination. This small periappendiceal collection is new, however. The appendix is seen to fill with oral contrast material throughout its length. APPENDIX: As above PERITONEUM: Persistent small fluid in the cul-de-sac. There is extensive inflammatory change noted in the omentum adjacent to the anterior cecum/ ascending colon, about the point of insertion of a surgical drainage catheter. There is no maxx abscess in this location. This may reflect phlegmon. In comparison to the prior examination, there has been increase in the extent of local inflammatory change. There is inflammation/AA edema of the right lateral abdominal wall muscles. Again, there is no abscess seen within the abdominal wall. There is edema of the subcutaneous fat adjacent to the abdominal wall musculature. There is no pneumoperitoneum. There is nonspecific presacral edema. LYMPH NODES: Unremarkable. No enlarged lymph nodes. BLADDER: There is thickening of the dome of the bladder adjacent to the fluid in the cul-de-sac and very small interloop collections of fluid. Concern for cystitis. Please correlate with urinalysis. REPRODUCTIVE: Status post hysterectomy. BONES: No acute fracture. OTHER FINDINGS: None. IMPRESSION: Increasing inflammatory change in the omentum anterior to the cecum about the point of insertion of a surgical drainage catheter in the right lateral abdominal wall. Edema/ inflammation in the musculature of the right abdominal wall. New small collection about the tip of the appendix just inferior to the level of the cecal apex and medially, measuring 1.6 x 3.2 cm. Small amount of fluid in cul-de-sac as on prior CT examination. No evidence of bowel perforation. No contrast extravasation or pneumoperitoneum. Nonspecific presacral edema is noted.
[2016-12-17] MEDS ORDERED: Midazolam 2 MG/2 ML VIAL ONE (13:44)
[2016-12-17] MEDS ORDERED: Succinylcholine 200 mg/10 ml Inj IV ONE (13:44)
[2016-12-17] MEDS ORDERED: Neostigmine Methylsulfate 2 MG/2 ML ML IV ONE (13:44)
[2016-12-17] MEDS ORDERED: Propofol 10 mg/ml Inj (20 ML) ONE (13:44)
[2016-12-17] MEDS ORDERED: Lidocaine Hydrochloride 5 ML INJ ONE (13:44)
[2016-12-17] MEDS ORDERED: Rocuronium 10 mg/ml (5 ml) ONE (13:45)
[2016-12-17] MEDS ORDERED: metroNIDAZOLE 500mg/100ml NS 0 ML IVPB ONE (13:47)
[2016-12-17] MEDS: Lidocaine 1% Inj (20ml) ONE ×2 (14:55→16:30)
[2016-12-17] MEDS: Bupivacaine 0.5% Inj(30mL) ONE ×2 (14:55→16:30)
--- NOTE | 2016-12-17 15:22 | CP.PCM.PN ---
Subjective - Date & Time of Evaluation Date of Evaluation: 12/17/16 Time of Evaluation: 07:20 - Subjective Subjective: Patient seen and examined at bedside. Patient with worsening abdominal pain, not controlled with medications. Tmax 101.9. Spoke with surgical team, plan for CT scan at this time. Previous surgery was removal of teratoma. Objective - Vital Signs/Intake and Output Vital Signs (last 24 hours): Temp Pulse Resp BP Pulse Ox 98.3 F 84 18 104/67 95 12/17/16 13:46 12/17/16 13:46 12/17/16 13:46 12/17/16 13:46 12/17/16 13:46 Intake and Output: 12/17/16 12/17/16 06:59 18:59 Intake Total 1700 450 Balance 1700 450 - Medications Medications: Current Medications Acetaminophen (Tylenol 325mg Tab) 325 mg PO Q6 PRN PRN Reason: Fever >100.4 F Last Admin: 12/17/16 01:41 Dose: 325 mg Enoxaparin Sodium (Lovenox) 40 mg SC DAILY [facility] PRN Reason: Protocol Hydromorphone HCl (Dilaudid) 0.5 mg IVP Q4H PRN PRN Reason: Pain, moderate (4-7) Stop: 12/19/16 07:19 Sodium Chloride (Sodium Chloride 0.9%) 1,000 mls @ 1,000 mls/hr IV .Q1H [facility] Last Admin: 12/15/16 09:56 Dose: 1,000 mls/hr Metronidazole (Flagyl 500mg/100ml Ns) 100 mls @ 100 mls/hr IVPB Q8 [facility] Last Admin: 12/17/16 08:43 Dose: 100 mls/hr Meropenem 1 gm/ Sodium (Chloride) 100 mls @ 100 mls/hr IVPB Q8 [facility] Last Admin: 12/17/16 08:44 Dose: 100 mls/hr Vancomycin HCl 1 gm/ Sodium (Chloride) 250 mls @ 166.667 mls/hr IVPB Q12H [facility] Last Admin: 12/17/16 08:45 Dose: 166.667 mls/hr Ketorolac Tromethamine (Toradol) 30 mg IVP Q6 PRN PRN Reason: Pain, severe (8-10) Last Admin: 12/17/16 08:22 Dose: 30 mg - Labs Labs: 12/17/16 05:50 12/17/16 05:50 PT 10.5 SECONDS (9.6-11.2) 12/15/16 10:10 INR 1.01 (0.92-1.08) 12/15/16 10:10 APTT 30.2 SECONDS (23.3-32.5) 12/15/16 10:10 - Constitutional Appears: In Acute Distress - Head Exam Head Exam: NORMAL INSPECTION - Eye Exam Eye Exam: Normal appearance - Cardiovascular Exam Cardiovascular Exam: REGULAR RHYTHM, +S1, +S2. absent: Murmur - GI/Abdominal Exam GI & Abdominal Exam: Soft, Tenderness (diffuse), Normal Bowel Sounds - Extremities Exam Extremities Exam: Normal Inspection - Neurological Exam Neurological Exam: Alert, Awake, Oriented x3 - Psychiatric Exam Psychiatric exam: Normal Affect, Normal Mood - Skin Skin Exam: Dry, Intact, Normal Color, Warm Assessment and Plan (1) Sepsis Assessment & Plan: Continues to have abdominal pain (worsening) and fever with leukocytosis, unchanged Likely source of infection is wound C/w Abx as per ID (flagyl/meropenem) Aggressive fluid hydration f/u repeat UA, f/u blair cultures Tylenol prn for fever F/u AM labs Status: Acute (2) Abdominal pain Assessment & Plan: s/p removal of sacro-coccygeal teratoma POD #11 Surgery on board, appreciate input Purulent discharge noted around drain site on presentation I&D at drain site yesterday CT abdomen/pelvis today due to worsening clinical condition Morphine PRN for pain, monitor BP Status: Acute (3) Hypokalemia Assessment & Plan: Improved, normal today. Status: Acute
[2016-12-17] MEDS ORDERED: Lactated Ringer's 1,000 ML IV SCH ×2 (16:52→19:29)
[2016-12-17] MEDS: HYDROmorphone 0.5 mg/0.5 ml ISec IVP PRN ×4 (16:55→21:30)
--- NOTE | 2016-12-17 17:09 | PCM.SURG1 ---
Surgeon's Initial Post Op Note - Surgeon's Notes Surgeon: Dr. Mathews [employer] Blasting: Dr. Dailey Type of Anesthesia: General Endo Pre-Operative Diagnosis: Sepsis, Intra-abdominal phlegmon v. abscess Operative Findings: Appendicitis, Omentum adhered to abdominal wall, see operative report Post-Operative Diagnosis: as above Operation Performed: Exploratory Laparoscopy. Appendectomy. Lysis of adhesions. Abdominal wound Debridement Specimen/Specimens Removed: appendix, necrotic tissue, fluid for culture Estimated Blood Loss: EBL {In ML}: 10 Blood Products Given: N/A Drains Used: Figueroa Post-Op Condition: Good Date of Surgery/Procedure: 12/17/16 Time of Surgery/Procedure: 17:13
--- NOTE | 2016-12-17 17:45 | CP.PCM.PN ---
Subjective - Date & Time of Evaluation Date of Evaluation: 12/17/16 Time of Evaluation: 06:00 - Subjective Subjective: s/p or drainage iv rx in progress Objective - Vital Signs/Intake and Output Vital Signs (last 24 hours): Temp Pulse Resp BP Pulse Ox 97.5 F L 86 18 108/55 L 100 12/17/16 17:20 12/17/16 17:20 12/17/16 17:20 12/17/16 17:20 12/17/16 17:20 Intake and Output: 12/17/16 12/17/16 06:59 18:59 Intake Total 1700 1050 Output Total 40 Balance 1700 1010 - Medications Medications: Current Medications Acetaminophen (Tylenol 325mg Tab) 325 mg PO Q6 PRN PRN Reason: Fever >100.4 F Last Admin: 12/17/16 01:41 Dose: 325 mg Enoxaparin Sodium (Lovenox) 40 mg SC DAILY [facility] PRN Reason: Protocol Hydromorphone HCl (Dilaudid) 0.5 mg IVP Q10M PRN PRN Reason: Pain, moderate (4-7) Stop: 12/17/16 18:54 Last Admin: 12/17/16 17:10 Dose: 0.5 mg Hydromorphone HCl (Dilaudid) 0.5 mg IVP Q3H PRN PRN Reason: Pain, moderate (4-7) Stop: 12/19/16 07:19 Sodium Chloride (Sodium Chloride 0.9%) 1,000 mls @ 1,000 mls/hr IV .Q1H [facility] Last Admin: 12/15/16 09:56 Dose: 1,000 mls/hr Metronidazole (Flagyl 500mg/100ml Ns) 100 mls @ 100 mls/hr IVPB Q8 [facility] Last Admin: 12/17/16 08:43 Dose: 100 mls/hr Meropenem 1 gm/ Sodium (Chloride) 100 mls @ 100 mls/hr IVPB Q8 [facility] Last Admin: 12/17/16 08:44 Dose: 100 mls/hr Vancomycin HCl 1 gm/ Sodium (Chloride) 250 mls @ 166.667 mls/hr IVPB Q12H [facility] Last Admin: 12/17/16 08:45 Dose: 166.667 mls/hr Lactated Ringer's (Lactated Ringer's) 1,000 mls @ 100 mls/hr IV .Q10H [facility] Ketorolac Tromethamine (Toradol) 30 mg IVP Q6 PRN PRN Reason: Pain, severe (8-10) Last Admin: 12/17/16 08:22 Dose: 30 mg Ondansetron HCl (Zofran Inj) 4 mg IVP ONCE PRN PRN Reason: Nausea/Vomiting Stop: 12/17/16 18:54 - Labs Labs: 12/17/16 05:50 12/17/16 05:50 PT 10.5 SECONDS (9.6-11.2) 12/15/16 10:10 INR 1.01 (0.92-1.08) 12/15/16 10:10 APTT 30.2 SECONDS (23.3-32.5) 12/15/16 10:10 - Constitutional Appears: Chronically Ill - Head Exam Head Exam: NORMOCEPHALIC - Eye Exam Eye Exam: PERRL. absent: Scleral icterus - ENT Exam ENT Exam: Mucous Membranes Dry - Neck Exam Neck Exam: absent: Lymphadenopathy - Respiratory Exam Respiratory Exam: Decreased Breath Sounds - Cardiovascular Exam Cardiovascular Exam: REGULAR RHYTHM - GI/Abdominal Exam GI & Abdominal Exam: Distended, Tenderness Assessment and Plan - Assessment and Plan (Free Text) Plan: abscess/ peritonitis s/p colectomy cont rx
[2016-12-17] MEDS ORDERED: metroNIDAZOLE 500mg/100ml NS IVPB ONE (18:00)
[2016-12-17] MEDS: Enoxaparin 40 mg Syringe SC SCH (18:49)
[2016-12-18] MEDS: metroNIDAZOLE 500mg/100ml NS 100 ML IVPB SCH ×3 (00:49→17:25)
[2016-12-18] MEDS: HYDROmorphone 0.5 mg/0.5 ml ISec IVP PRN ×4 (03:00→16:11)
[2016-12-18] MEDS: Meropenem 1 GM in Sodium Chloride 0.9% 100 ML IVPB SCH ×3 (03:01→16:10)
--- NOTE | 2016-12-18 07:44 | CP.PCM.PN ---
Subjective - Date & Time of Evaluation Date of Evaluation: 12/18/16 Time of Evaluation: 07:41 - Subjective Subjective: General Surgery - Dr Mathews PT S&e. Overnight pt had minimal hypotension. Fluid rate increased and pt responded appropriately. Urine output is adequate since OR with >50cc/hr. Pt reports increased abdominal pain, not well controlled. Pain primarily located in RLQ. Will adjust medications accordingly. Denies N/V, F/C. Iodoform packing changed at bedside. Objective - Vital Signs/Intake and Output Vital Signs (last 24 hours): Temp Pulse Resp BP Pulse Ox 100.0 F H 95 H 18 110/69 95 12/18/16 05:08 12/18/16 05:08 12/18/16 05:08 12/18/16 05:08 12/18/16 05:08 - Medications Medications: Current Medications Acetaminophen (Tylenol 325mg Tab) 325 mg PO Q6 PRN PRN Reason: Fever >100.4 F Last Admin: 12/17/16 01:41 Dose: 325 mg Enoxaparin Sodium (Lovenox) 40 mg SC DAILY [facility] PRN Reason: Protocol Last Admin: 12/17/16 18:49 Dose: Not Given Hydromorphone HCl (Dilaudid) 1 mg IVP Q3H PRN PRN Reason: Pain, moderate (4-7) Stop: 12/19/16 07:19 Sodium Chloride (Sodium Chloride 0.9%) 1,000 mls @ 1,000 mls/hr IV .Q1H [facility] Last Admin: 12/15/16 09:56 Dose: 1,000 mls/hr Metronidazole (Flagyl 500mg/100ml Ns) 100 mls @ 100 mls/hr IVPB Q8 [facility] Last Admin: 12/18/16 00:49 Dose: 100 mls/hr Meropenem 1 gm/ Sodium (Chloride) 100 mls @ 100 mls/hr IVPB Q8 [facility] Last Admin: 12/18/16 03:01 Dose: 100 mls/hr Vancomycin HCl 1 gm/ Sodium (Chloride) 250 mls @ 166.667 mls/hr IVPB Q12H [facility] Last Admin: 12/17/16 22:05 Dose: 166.667 mls/hr Lactated Ringer's (Lactated Ringer's) 1,000 mls @ 150 mls/hr IV .Q6H40M [facility] Last Admin: 12/17/16 22:25 Dose: 150 mls/hr Ketorolac Tromethamine (Toradol) 30 mg IVP Q6 PRN PRN Reason: Pain, severe (8-10) Last Admin: 12/18/16 06:29 Dose: 30 mg - Labs Labs: 12/17/16 05:50 12/17/16 05:50 PT 10.5 SECONDS (9.6-11.2) 12/15/16 10:10 INR 1.01 (0.92-1.08) 12/15/16 10:10 APTT 30.2 SECONDS (23.3-32.5) 12/15/16 10:10 - Constitutional Appears: Non-toxic, No Acute Distress - Head Exam Head Exam: NORMOCEPHALIC - Respiratory Exam Respiratory Exam: absent: Accessory Muscle Use, Respiratory Distress - Cardiovascular Exam Cardiovascular Exam: REGULAR RHYTHM. absent: Tachycardia - GI/Abdominal Exam GI & Abdominal Exam: Guarding, Soft, Tenderness (RLQ and suprapubic - appropriate post-op). absent: Distended, Firm, Rebound - Extremities Exam Extremities Exam: absent: Calf Tenderness, Pedal Edema - Neurological Exam Neurological Exam: Alert, Awake, Oriented x3 - Psychiatric Exam Psychiatric exam: Normal Affect, Normal Mood - Skin Skin Exam: Normal Color, Warm Assessment and Plan - Assessment and Plan (Free Text) Assessment: 46F POD#1 s/p exploratory laparoscopy w/ HUGO and appendectomy Plan: Cont CLD - will consider advancing tomorrow/this afternoon will D/C marrero and reduce fluid rate iodoform packing changed at bedside cont to monitor drain output will inc dilaudid to 1 mg d/w Dr Reid Sandoval, DO, PGY2
[2016-12-18 08:06] LABS: HEMATOCRIT 31.7 % (34.0-47.0); MEAN CELL VOLUME 83.6 fl (81.0-99.0); MEAN CORPUSCULAR HGB CONC 32.3 g/dL (33.0-37.0); RED CELL DISTRIBUTION WIDTH 13.5 % (11.5-14.5)
[2016-12-18] MEDS ORDERED: HYDROmorphone 0.5 mg/0.5 ml ISec IVP STA (08:08)
[2016-12-18 08:30] LABS: ALKALINE PHOSPHATASE 163 U/L (38-126); ALT/SGPT 21 U/L (9-52); AST/SGOT 35 U/L (14-36); BILIRUBIN,TOTAL 0.3 mg/dl (0.2-1.3); BLOOD UREA NITROGEN 7 mg/dl (7-17); CALCIUM 8.5 mg/dL (8.4-10.2); CARBON DIOXIDE 25 mmol/L (22-30); CHLORIDE 104 mmol/L (98-107); GFR AFRICAN-AMERICAN > 60; GLUCOSE,RANDOM 110 mg/dL (65-105); POTASSIUM 3.3 MMOL/L (3.6-5.0); SODIUM 139 mmol/l (132-148); TOTAL PROTEIN 6.4 G/DL (6.3-8.2)
[2016-12-18] MEDS: Lactated Ringer's 1,000 ML IV SCH ×2 (08:30→21:08)
--- NOTE | 2016-12-18 09:36 | PN ---
DATE: 12/18/2016 The patient seen and examined. Interim events noted. Consults noted and appreciated. Case discusse d with surgery yesterday. The patient had surgery done and was found to have acute appendicitis. Ca se was also discussed with multiple family members at bedside. Case was also discussed with the [facility] ent's primary care physician, Dr. Wood. The patient still complains of pain in the abdomen, it i s more a surgical site pain. She says it is a little different than pain she was in yesterday. No c hest pain, no shortness of breath. PHYSICAL EXAMINATION: GENERAL: The patient is in no acute distress. VITAL SIGNS: Stable. The patient ____ discomfort due to ____ The patient's vital signs are stable . HEART: S1, S2 normal, regular. LUNGS: Good bilateral air exchange. GENERAL: The patient is status post surgery. No sign of acute complication. EXTREMITIES: No edema, no calf swelling, no tenderness, no acute ischemia. CENTRAL NERVOUS SYSTEM: Essentially unchanged. DIAGNOSTIC DATA: Available diagnostic data reviewed. Telemetry monitoring does not reveal significa nt arrhythmia. Overall, patient's general medical condition is stable and improving. PLAN: As ordered. Adam Craven MD cc: [id number] TT: 12/18/2016 09:35:38 Confirmation # [id number] Dictation # [id number] tiffanie
[2016-12-18] MEDS: Enoxaparin 40 mg Syringe SC SCH (10:00)
[2016-12-19] MEDS: Meropenem 1 GM in Sodium Chloride 0.9% 100 ML IVPB SCH ×2 (00:04→08:23)
[2016-12-19] MEDS: metroNIDAZOLE 500mg/100ml NS 100 ML IVPB SCH ×3 (00:11→17:09)
[2016-12-19] MEDS: Enoxaparin 40 mg Syringe SC SCH (08:24)
[2016-12-19 08:27] LABS: HEMATOCRIT 30.9 % (34.0-47.0); MEAN CELL VOLUME 82.6 fl (81.0-99.0); MEAN CORPUSCULAR HGB CONC 32.6 g/dL (33.0-37.0); RED CELL DISTRIBUTION WIDTH 13.4 % (11.5-14.5); WHITE BLOOD COUNT 9.1 K/uL (4.8-10.8)
[2016-12-19 08:41] LABS: ALB/GLOB RATIO 0.9 (1.0-2.1); ALKALINE PHOSPHATASE 71 U/L (38-126); ALT/SGPT 25 U/L (9-52); AST/SGOT 20 U/L (14-36); BILIRUBIN,TOTAL 0.2 mg/dl (0.2-1.3); BLOOD UREA NITROGEN 6 mg/dl (7-17); CALCIUM 8.4 mg/dL (8.4-10.2); CARBON DIOXIDE 29 mmol/L (22-30); CHLORIDE 103 mmol/L (98-107); GFR AFRICAN-AMERICAN > 60; GLUCOSE,RANDOM 97 mg/dL (65-105); POTASSIUM 3.5 MMOL/L (3.6-5.0); SODIUM 140 mmol/l (132-148)
--- NOTE | 2016-12-19 09:03 | PN ---
DATE: 12/19/2016 The patient is seen and examined. Interim events noted. Consults noted and appreciated. Surgical f ollowup noted and appreciated. The patient remains in progressive care unit. The patient feels a li ttle better, still has pain but improved. No chest pain, no shortness of breath. PHYSICAL EXAMINATION: GENERAL: The patient is in no acute distress. VITAL SIGNS: Stable. HEART: S1, S2 normal, regular. LUNGS: Good bilateral air entry. ABDOMEN: Soft, nontender. Feels a little bit better. EXTREMITIES: No edema, no calf swelling, no tenderness, no acute ischemia. CENTRAL NERVOUS SYSTEM: Essentially unchanged. No sign of acute ____ postop complication. DIAGNOSTIC DATA: Available diagnostic data reviewed. Telemetry monitoring does not reveal significa nt arrhythmias. Overall, the patient's general condition is slowly improving. PLAN: As ordered. Adam Craven MD cc: [id number] TT: 12/19/2016 09:02:50 Confirmation # [id number] Dictation # [id number] tiffanie
[2016-12-19] MEDS: Lactated Ringer's 1,000 ML IV SCH (09:31)
[2016-12-19] MEDS ORDERED: Potassium Chloride 20 mEq ER Tab PO ONE (10:46)
--- NOTE | 2016-12-19 11:59 | CP.PCM.PN ---
Subjective - Date & Time of Evaluation Date of Evaluation: 12/19/16 Time of Evaluation: 11:56 - Subjective Subjective: General Surgery - Dr. Mathews Pt S&E. JEMIMA. Pt has mild abdominal pain near the incisions, otherwise no complaints. She is tolerating clear liquid diet, passing flatus and had several loose stools yesterday. No F/C, SOb/Cp. Pt has been OOB to chair and working with incentive spirometer. Figueroa drain in LUQ with serous drainage. Objective - Vital Signs/Intake and Output Vital Signs (last 24 hours): Temp Pulse Resp BP Pulse Ox 98.7 F 80 18 107/67 98 12/19/16 07:58 12/19/16 09:00 12/19/16 07:58 12/19/16 07:58 12/19/16 07:58 Intake and Output: 12/19/16 12/19/16 06:59 18:59 Intake Total 3010 Output Total 501 Balance 2509 - Medications Medications: Current Medications Acetaminophen (Tylenol 325mg Tab) 325 mg PO Q6 PRN PRN Reason: Fever >100.4 F Last Admin: 12/17/16 01:41 Dose: 325 mg Enoxaparin Sodium (Lovenox) 40 mg SC DAILY [facility] PRN Reason: Protocol Last Admin: 12/19/16 08:24 Dose: 40 mg Hydromorphone HCl (Dilaudid) 1 mg IVP Q6H PRN PRN Reason: Pain, severe (8-10) Last Admin: 12/19/16 10:21 Dose: 1 mg Metronidazole (Flagyl 500mg/100ml Ns) 100 mls @ 100 mls/hr IVPB Q8 [facility] Last Admin: 12/19/16 09:24 Dose: 100 mls/hr Meropenem 1 gm/ Sodium (Chloride) 100 mls @ 100 mls/hr IVPB Q8 [facility] Last Admin: 12/19/16 08:23 Dose: 100 mls/hr Vancomycin HCl 1 gm/ Sodium (Chloride) 250 mls @ 166.667 mls/hr IVPB Q12H [facility] Last Admin: 12/19/16 08:23 Dose: 166.667 mls/hr Lactated Ringer's (Lactated Ringer's) 1,000 mls @ 75 mls/hr IV .[id number] [facility] Last Admin: 12/19/16 09:31 Dose: 75 mls/hr Ketorolac Tromethamine (Toradol) 30 mg IVP Q6 PRN PRN Reason: Pain, severe (8-10) Last Admin: 12/18/16 06:29 Dose: 30 mg - Labs Labs: 12/19/16 06:30 12/19/16 06:30 PT 10.5 SECONDS (9.6-11.2) 12/15/16 10:10 INR 1.01 (0.92-1.08) 12/15/16 10:10 APTT 30.2 SECONDS (23.3-32.5) 12/15/16 10:10 - Constitutional Appears: No Acute Distress - Head Exam Head Exam: ATRAUMATIC, NORMAL INSPECTION, NORMOCEPHALIC - Eye Exam Eye Exam: Normal appearance - Respiratory Exam Respiratory Exam: NORMAL BREATHING PATTERN. absent: Respiratory Distress - GI/Abdominal Exam GI & Abdominal Exam: Distended (mild), Soft, Tenderness (appropriately). absent : Guarding, Rigid, Rebound Additional comments: figueroa drain LUQ with serous drainage Abdominal wound RUQ with iodoform packing in place - Neurological Exam Neurological Exam: Alert, Oriented x3 - Psychiatric Exam Psychiatric exam: Normal Affect, Normal Mood - Skin Skin Exam: Dry, Intact Assessment and Plan - Assessment and Plan (Free Text) Assessment: 46F POD#2 s/p exploratory laparoscopy w/ Appendectomy, HUGO, abdominal wound debridement Plan: Full liquid diet and advance as tolerated to regular Packing change daily Monitor drain output Continue Abx Encourage Ambulation and incentive spirometer LOI Dailey PGY2
[2016-12-19] MEDS ORDERED: DiphenhydrAMINE 50 mg/ml Inj IVP PRN (13:45)
--- NOTE | 2016-12-19 13:55 | CP.PCM.PN ---
Subjective - Date & Time of Evaluation Date of Evaluation: 12/19/16 Time of Evaluation: 09:00 - Subjective Subjective: wound c/s + MSSA will d/c vanco switch merrem to zosyn Objective - Vital Signs/Intake and Output Vital Signs (last 24 hours): Temp Pulse Resp BP Pulse Ox 98.9 F 80 18 93/50 L 97 12/19/16 12:21 12/19/16 12:21 12/19/16 12:21 12/19/16 12:21 12/19/16 12:21 Intake and Output: 12/19/16 12/19/16 06:59 18:59 Intake Total 3010 Output Total 501 Balance 2509 - Medications Medications: Current Medications Acetaminophen (Tylenol 325mg Tab) 325 mg PO Q6 PRN PRN Reason: Fever >100.4 F Last Admin: 12/17/16 01:41 Dose: 325 mg Diphenhydramine HCl (Benadryl) 25 mg IVP Q6H PRN PRN Reason: Itching / Pruritus Enoxaparin Sodium (Lovenox) 40 mg SC DAILY [facility] PRN Reason: Protocol Last Admin: 12/19/16 08:24 Dose: 40 mg Hydromorphone HCl (Dilaudid) 1 mg IVP Q6H PRN PRN Reason: Pain, severe (8-10) Last Admin: 12/19/16 10:21 Dose: 1 mg Metronidazole (Flagyl 500mg/100ml Ns) 100 mls @ 100 mls/hr IVPB Q8 [facility] Last Admin: 12/19/16 09:24 Dose: 100 mls/hr Meropenem 1 gm/ Sodium (Chloride) 100 mls @ 100 mls/hr IVPB Q8 [facility] Last Admin: 12/19/16 08:23 Dose: 100 mls/hr Lactated Ringer's (Lactated Ringer's) 1,000 mls @ 75 mls/hr IV .[id number] [facility] Last Admin: 12/19/16 09:31 Dose: 75 mls/hr Ketorolac Tromethamine (Toradol) 30 mg IVP Q6 PRN PRN Reason: Pain, severe (8-10) Last Admin: 12/18/16 06:29 Dose: 30 mg - Labs Labs: 12/19/16 06:30 12/19/16 06:30 PT 10.5 SECONDS (9.6-11.2) 12/15/16 10:10 INR 1.01 (0.92-1.08) 12/15/16 10:10 APTT 30.2 SECONDS (23.3-32.5) 12/15/16 10:10 - Constitutional Appears: Non-toxic, Chronically Ill - Head Exam Head Exam: NORMOCEPHALIC - Eye Exam Eye Exam: PERRL - ENT Exam ENT Exam: Mucous Membranes Dry - Neck Exam Neck Exam: absent: Lymphadenopathy - Respiratory Exam Respiratory Exam: Decreased Breath Sounds, Rhonchi - Cardiovascular Exam Cardiovascular Exam: REGULAR RHYTHM, +S1, +S2 - GI/Abdominal Exam GI & Abdominal Exam: Distended, Soft. absent: Tenderness - Rectal Exam Rectal Exam: Deferred - Exam Exam: NORMAL INSPECTION - Extremities Exam Extremities Exam: absent: Pedal Edema - Back Exam Back Exam: absent: CVA tenderness (L), CVA tenderness (R) - Neurological Exam Neurological Exam: Alert, Awake, Oriented x3 Assessment and Plan (1) Peritonitis Status: Acute (2) Peritonitis Status: Acute (3) Abscess after procedure Status: Acute (4) Abscess after procedure Status: Acute (5) Abdominal pain Status: Acute (6) Severe sepsis Status: Acute
[2016-12-19] MEDS: Piperacillin/Tazobact 3.375 GM in Sodium Chloride 0.9% 100 ML IVPB SCH (16:08)
[2016-12-20] MEDS: Piperacillin/Tazobact 3.375 GM in Sodium Chloride 0.9% 100 ML IVPB SCH ×3 (00:11→17:54)
[2016-12-20] MEDS: metroNIDAZOLE 500mg/100ml NS 100 ML IVPB SCH ×3 (00:14→17:53)
[2016-12-20] MEDS: Lactated Ringer's 1,000 ML IV SCH (00:15)
--- NOTE | 2016-12-20 06:30 | OP ---
PROCEDURE DATE: 12/17/2016 PREOPERATIVE DIAGNOSES: 1. Severe sepsis. 2. Intra-abdominal infection 3. Status post pelvic teratoma excision, postoperative day #7. 4. Abdominal wall Cellulitis and abscess. POSTOPERATIVE DIAGNOSES: 1. Acute phlegmonous suppurative appendicitis. 2. Extensive post infectious adhesions in the pelvis and right upper quadrant. 3. Extensive pelvic right paracolic gutter and perihepatic abscesses. 4. Abdominal wall abscess and necrosis. PROCEDURE DONE: 1. Exploratory laparoscopy. 2. Laparoscopic extensive lysis of adhesion. 3. Laparoscopic appendectomy. 4. Laparoscopic drainage of pelvic periappendicular and perihepatic abscesses. 5. Incision and drainage of abdominal wall abscess. 6. Excision and debridement of the abdominal wall necrotic tissue. SURGEON: Tone Mathews MD [employer] MANAGER: Hannah Dailey, PGY-2, resident. ANESTHESIA: General endotracheal tube anesthesia. ESTIMATED BLOOD LOSS: Around 20 mL. DRAINS: A 19[place]Citizen [place] Figueroa drain was placed in the pelvis and the right lower quadrant. COMPLICATIONS: None. INTRAOPERATIVE FINDINGS: The patient had extensive phlegmonous changes in the right lower quadrant as well as in the pelvis due to the previous pelvic surgery as well as suppurative appendicitis identified. The patient also had extensive pelvic periappendicular and perihepatic abscesses and the drain was completely covered with omentum and there was thickened cake-like omentum at the site of the drain without any abscesses. The patient also had right abdominal wall abscess as well as necrosis of the abscess wall due to the pus that was draining surrounding the previous TIGRE drain placed site. INTRAOPERATIVE STEPS: This is a 46-year-old female who was diagnosed with severe sepsis and the patient was status post pelvic teratoma excision postoperative day #7 and the patient continued to have a high white count with high fever and the patient also had right abdominal wall abscess and cellulitis as well as peritoneal signs and the patient was consented for the exploratory laparoscopy, possible bowel resection and possible removal of the drain as well as replacement of the drain and the patient was brought to the OR, placed supine on the operating table. After induction of the anesthesia, the abdomen was prepped and draped in the usual sterile fashion. The patient was placed in a stirrups and a Najera catheter as well as NG tube was placed and a supraumbilical transverse incision was made after incising skin and subcutaneous tissue and the fascia, the peritoneal cavity was entered. Pneumo was created. Another two 5 mm ports were placed in the left upper quadrant as well as the left lower quadrant. Grasper and dissector were introduced. The patient was found to have extensive phlegmonous changes in the right lower quadrant as well as in the pelvis and first blunt and sharp dissection was done and the drain was completely encircled by the omentum and the drain was taken out and it was sent to the table for pathology and the patient found to have pelvic abscesses that were drained, periappendicular abscess that was drained. The appendix was examined and the appendix appeared to be extremely thickened and edematous, and the mesoappendix was resected and the base of the appendix was resected with a MIGUEL and the appendix was taken through the umbilical port site and sent to the table for the pathology. Now after proper suction and irrigation, the omentum was completely examined. The rectum was also examined with air test to find any opening. The bladder was also examined after injecting 600 mL of fluid inside the bladder for any leak and there was no leak identified or there was no abnormality identified in the bladder as well as the rectum. After that, the 19[place]izen [place] Figueroa drain was placed in the pelvis as well as the periappendicular area and taken out through the left lower quadrant incision site and pneumo was deflated. The umbilical port site was closed in 2 layers, the fascia with 0 Vicryl interrupted sutures, the skin with a 4-0 Monocryl. Now, the abdominal wall abscess and cellulitis area at the right lower quadrant was debrided, the pus was drained and the abdominal wall was sent to the table for the pathology. After proper debridement, the wound was irrigated and wound was packed with iodoform packing and dry sterile dressing was applied. The patient tolerated the procedure well. Count of instrument was correct. There was no apparent complications. Tone Mathews MD cc: [id number] TT: 12/19/2016 20:28:57 davina PETERSEN
--- NOTE | 2016-12-20 09:05 | CP.PCM.PN ---
<Liya Wesley - Last Filed: 12/20/16 17:12> Subjective - Date & Time of Evaluation Date of Evaluation: 12/20/16 Time of Evaluation: 06:45 - Subjective Subjective: General Surgery progress note for Dr. Mathews Patient s/e at bedside this AM. NAEO. Patient complains of significant abdominal pain that has not changed since yesterday. Denies any nausea, vomiting , fevers, chills, or chest pain. Afebrile for 24 hours with Tmax of 99.3 overnight. Approximately 30cc's of serous fluid from the figueroa drain/24hours. Objective - Vital Signs/Intake and Output Vital Signs (last 24 hours): Temp Pulse Resp BP Pulse Ox 97.9 F 63 16 104/64 98 12/20/16 08:05 12/20/16 08:05 12/20/16 08:05 12/20/16 08:05 12/20/16 08:05 Intake and Output: 12/20/16 12/20/16 06:59 18:59 Intake Total 1450 1340 Output Total 130 30 Balance 1320 1310 - Medications Medications: Current Medications Acetaminophen (Tylenol 325mg Tab) 325 mg PO Q6 PRN PRN Reason: Fever >100.4 F Last Admin: 12/17/16 01:41 Dose: 325 mg Diphenhydramine HCl (Benadryl) 25 mg IVP Q6H PRN PRN Reason: Itching / Pruritus Last Admin: 12/19/16 14:15 Dose: 25 mg Hydromorphone HCl (Dilaudid) 1 mg IVP Q3H PRN PRN Reason: Pain, moderate (4-7) Last Admin: 12/20/16 06:24 Dose: 1 mg Metronidazole (Flagyl 500mg/100ml Ns) 100 mls @ 100 mls/hr IVPB Q8 [facility] Last Admin: 12/20/16 00:14 Dose: 100 mls/hr Lactated Ringer's (Lactated Ringer's) 1,000 mls @ 75 mls/hr IV .[id number] [facility] Last Admin: 12/20/16 00:15 Dose: 75 mls/hr Piperacillin Sod/Tazobactam (Sod 3.375 gm/ Sodium Chloride) 100 mls @ 100 mls/ hr IVPB Q8 [facility] Last Admin: 12/20/16 00:11 Dose: 100 mls/hr Ketorolac Tromethamine (Toradol) 30 mg IVP Q6 [facility] Stop: 12/21/16 16:00 Last Admin: 12/20/16 04:04 Dose: 30 mg - Labs Labs: 12/19/16 06:30 12/19/16 06:30 PT 10.5 SECONDS (9.6-11.2) 12/15/16 10:10 INR 1.01 (0.92-1.08) 12/15/16 10:10 APTT 30.2 SECONDS (23.3-32.5) 12/15/16 10:10 - Constitutional Appears: Non-toxic - Head Exam Head Exam: ATRAUMATIC, NORMOCEPHALIC - Eye Exam Eye Exam: Normal appearance. absent: Conjunctival injection, Scleral icterus - ENT Exam ENT Exam: Mucous Membranes Moist, Normal Oropharynx - Respiratory Exam Respiratory Exam: NORMAL BREATHING PATTERN. absent: Accessory Muscle Use, Respiratory Distress - Cardiovascular Exam Cardiovascular Exam: RRR - GI/Abdominal Exam GI & Abdominal Exam: Distended (Moderately), Soft, Tenderness (severe tenderness to palpation in the RLQ and LLQ). absent: Rebound Additional comments: Former drain insertion site with iodofom gauze packing with no drainage or active bleeding, no surrounding swelling or erythema. Recent surgical incision sites covered in steri-strips c/d/i. Figueroa drain patent with minimal amount of serous fluid, but dressing around the drain moderately saturated with serous fluid. - Extremities Exam Extremities Exam: absent: Calf Tenderness, Pedal Edema, Tenderness - Neurological Exam Neurological Exam: Alert, Awake, Oriented x3 - Psychiatric Exam Psychiatric exam: Normal Affect, Normal Mood - Skin Skin Exam: Dry, Normal Color, Warm Assessment and Plan - Assessment and Plan (Free Text) Assessment: 46F POD#3 s/p exploratory laparoscopy w/ Appendectomy, HUGO, abdominal wound debridement Afebrile/24h, VSS WBC: no leukocytosis Wound culture from previous surgery: MSSA Liquid bowel movement overnight per patient Plan: Advance as tolerated to regular Packing change daily Monitor drain output Continue Abx per ID, continue analgesia but try to limit dilaudid use to avoid patient dependence Encourage Ambulation and incentive spirometer If patient continues to be stable, will consider D/C tomorrow LOI Kaplany Wesley, PGY1 <Tone Mathews - Last Filed: 12/20/16 19:31> Objective - Vital Signs/Intake and Output Vital Signs (last 24 hours): Temp Pulse Resp BP Pulse Ox 98.0 F 76 20 95/62 L 95 12/20/16 15:37 12/20/16 15:37 12/20/16 15:37 12/20/16 15:37 12/20/16 15:37 Intake and Output: 12/20/16 12/21/16 18:59 06:59 Intake Total 1340 Output Total 30 Balance 1310 - Medications Medications: Current Medications Acetaminophen (Tylenol 325mg Tab) 325 mg PO Q6 PRN PRN Reason: Fever >100.4 F Last Admin: 12/17/16 01:41 Dose: 325 mg Diphenhydramine HCl (Benadryl) 25 mg IVP Q6H PRN PRN Reason: Itching / Pruritus Last Admin: 12/19/16 14:15 Dose: 25 mg Enoxaparin Sodium (Lovenox) 40 mg SC DAILY [facility] PRN Reason: Protocol Hydromorphone HCl (Dilaudid) 1 mg IVP Q3 PRN PRN Reason: Pain, moderate (4-7) Hydromorphone HCl (Dilaudid) 0.5 mg IVP Q4 PRN PRN Reason: Pain, severe (8-10) Metronidazole (Flagyl 500mg/100ml Ns) 100 mls @ 100 mls/hr IVPB Q8 [facility] Last Admin: 12/20/16 17:53 Dose: 100 mls/hr Piperacillin Sod/Tazobactam (Sod 3.375 gm/ Sodium Chloride) 100 mls @ 100 mls/ hr IVPB Q8 [facility] Last Admin: 12/20/16 17:54 Dose: 100 mls/hr Ketorolac Tromethamine (Toradol) 30 mg IVP Q6 [facility] Stop: 12/21/16 16:00 Last Admin: 12/20/16 17:53 Dose: 30 mg - Labs Labs: 12/20/16 09:20 12/20/16 09:20 PT 10.5 SECONDS (9.6-11.2) 12/15/16 10:10 INR 1.01 (0.92-1.08) 12/15/16 10:10 APTT 30.2 SECONDS (23.3-32.5) 12/15/16 10:10 Attending/Attestation - Attestation I have personally seen and examined this patient.: Yes I have fully participated in the care of the patient.: Yes I have reviewed all pertinent clinical information, including history, physical exam and plan: Yes Notes (Text): 12/20/16 19:30 Pt was seen and examined at bedside on 12/20/16 Agree with above note and assessment. Pt is improving clinically Reg diet Pt can be DC home tomorrow Plan d.w pt in detail
--- NOTE | 2016-12-20 09:24 | PN ---
DATE: 12/20/2016 The patient is seen and examined. Interim events noted. Consults noted and appreciated. Surgical a nd infectious disease followup and intervention noted and appreciated. The patient remains in [facility] on telemetry monitoring. The patient still complains of pain controlled with current pain medication. Did have a bowel movement. She is passing gas and able to tolerate food. PHYSICAL EXAMINATION: GENERAL: The patient is in no acute distress, seems to be in some discomfort from pain. VITAL SIGNS: Stable. HEART: S1, S2 normal, regular. LUNGS: Good bilateral air entry. ABDOMEN: The patient is status post surgery. No sign of acute complication. No guarding, no rigidi ty, no rebound. Has tenderness, which is consistent with postoperative status. EXTREMITIES: No edema, no calf swelling, no tenderness, no acute ischemia. CENTRAL NERVOUS SYSTEM: Essentially unchanged. DIAGNOSTIC DATA: Available diagnostic data reviewed. Telemetry monitoring does not reveal significa nt arrhythmia. Overall, the patient's general medical condition is slowly improving. PLAN: As ordered. Case and plan discussed with the patient. Adam Craven MD cc: [id number] TT: 12/20/2016 09:23:12 Confirmation # [id number] Dictation # [id number] tiffanie
[2016-12-20] MEDS: Enoxaparin 40 mg Syringe SC SCH (09:26)
[2016-12-20 09:37] LABS: HEMATOCRIT 30.8 % (34.0-47.0); MEAN CELL VOLUME 82.1 fl (81.0-99.0); MEAN CORPUSCULAR HEMOGLOBIN 27.3 pg (27.0-31.0); MEAN CORPUSCULAR HGB CONC 33.3 g/dL (33.0-37.0); RED CELL DISTRIBUTION WIDTH 13.6 % (11.5-14.5); WHITE BLOOD COUNT 7.1 K/uL (4.8-10.8)
[2016-12-20 09:58] LABS: BLOOD UREA NITROGEN 7 mg/dl (7-17); CALCIUM 8.7 mg/dL (8.4-10.2); CARBON DIOXIDE 29 mmol/L (22-30); CHLORIDE 104 mmol/L (98-107); GFR AFRICAN-AMERICAN > 60; GLUCOSE,RANDOM 80 mg/dL (65-105); POTASSIUM 3.6 MMOL/L (3.6-5.0); SODIUM 141 mmol/l (132-148)
--- NOTE | 2016-12-20 11:14 | CP.PCM.PN ---
Subjective - Date & Time of Evaluation Date of Evaluation: 12/20/16 Time of Evaluation: 08:00 - Subjective Subjective: afeb on zosyn drains in place pain + Objective - Vital Signs/Intake and Output Vital Signs (last 24 hours): Temp Pulse Resp BP Pulse Ox 97.9 F 63 16 104/64 98 12/20/16 08:05 12/20/16 08:05 12/20/16 08:05 12/20/16 08:05 12/20/16 08:05 Intake and Output: 12/20/16 12/20/16 06:59 18:59 Intake Total 1450 1340 Output Total 130 30 Balance 1320 1310 - Medications Medications: Current Medications Acetaminophen (Tylenol 325mg Tab) 325 mg PO Q6 PRN PRN Reason: Fever >100.4 F Last Admin: 12/17/16 01:41 Dose: 325 mg Diphenhydramine HCl (Benadryl) 25 mg IVP Q6H PRN PRN Reason: Itching / Pruritus Last Admin: 12/19/16 14:15 Dose: 25 mg Hydromorphone HCl (Dilaudid) 1 mg IVP Q3H PRN PRN Reason: Pain, moderate (4-7) Last Admin: 12/20/16 06:24 Dose: 1 mg Metronidazole (Flagyl 500mg/100ml Ns) 100 mls @ 100 mls/hr IVPB Q8 [facility] Last Admin: 12/20/16 09:25 Dose: 100 mls/hr Lactated Ringer's (Lactated Ringer's) 1,000 mls @ 75 mls/hr IV .[id number] [facility] Last Admin: 12/20/16 00:15 Dose: 75 mls/hr Piperacillin Sod/Tazobactam (Sod 3.375 gm/ Sodium Chloride) 100 mls @ 100 mls/ hr IVPB Q8 [facility] Last Admin: 12/20/16 09:24 Dose: 100 mls/hr Ketorolac Tromethamine (Toradol) 30 mg IVP Q6 [facility] Stop: 12/21/16 16:00 Last Admin: 12/20/16 09:26 Dose: 30 mg - Labs Labs: 12/20/16 09:20 12/20/16 09:20 PT 10.5 SECONDS (9.6-11.2) 12/15/16 10:10 INR 1.01 (0.92-1.08) 12/15/16 10:10 APTT 30.2 SECONDS (23.3-32.5) 12/15/16 10:10 - Constitutional Appears: Non-toxic, Chronically Ill - Head Exam Head Exam: NORMOCEPHALIC - Eye Exam Eye Exam: PERRL - ENT Exam ENT Exam: Mucous Membranes Dry - Neck Exam Neck Exam: absent: Lymphadenopathy - Respiratory Exam Respiratory Exam: Decreased Breath Sounds - Cardiovascular Exam Cardiovascular Exam: REGULAR RHYTHM - GI/Abdominal Exam GI & Abdominal Exam: Distended Assessment and Plan (1) Peritonitis Status: Acute (2) Peritonitis Status: Acute (3) Abscess after procedure Status: Acute (4) Abscess after procedure Status: Acute (5) Abdominal pain Status: Acute (6) Severe sepsis Status: Acute
[2016-12-20] MEDS ORDERED: HYDROmorphone 0.5 mg/0.5 ml ISec IVP PRN (17:06)
[2016-12-20] MEDS: HYDROmorphone 0.5 mg/0.5 ml ISec IVP PRN (20:49)
[2016-12-21] MEDS: Piperacillin/Tazobact 3.375 GM in Sodium Chloride 0.9% 100 ML IVPB SCH ×3 (01:31→17:09)
[2016-12-21] MEDS: metroNIDAZOLE 500mg/100ml NS 100 ML IVPB SCH ×3 (01:32→16:03)
[2016-12-21] MEDS: HYDROmorphone 0.5 mg/0.5 ml ISec IVP PRN ×2 (01:34→14:42)
[2016-12-21 06:46] LABS: HEMATOCRIT 30.9 % (34.0-47.0); MEAN CELL VOLUME 82.4 fl (81.0-99.0); MEAN CORPUSCULAR HEMOGLOBIN 26.9 pg (27.0-31.0); MEAN CORPUSCULAR HGB CONC 32.7 g/dL (33.0-37.0); RED CELL DISTRIBUTION WIDTH 13.4 % (11.5-14.5)
[2016-12-21 06:57] LABS: ALKALINE PHOSPHATASE 70 U/L (38-126); ALT/SGPT 28 U/L (9-52); AST/SGOT 20 U/L (14-36); BILIRUBIN,TOTAL 0.2 mg/dl (0.2-1.3); BLOOD UREA NITROGEN 7 mg/dl (7-17); CALCIUM 8.7 mg/dL (8.4-10.2); CARBON DIOXIDE 28 mmol/L (22-30); CHLORIDE 103 mmol/L (98-107); GFR AFRICAN-AMERICAN > 60; GLUCOSE,RANDOM 84 mg/dL (65-105); POTASSIUM 3.4 MMOL/L (3.6-5.0); SODIUM 141 mmol/l (132-148); TOTAL PROTEIN 5.9 G/DL (6.3-8.2)
[2016-12-21] MEDS ORDERED: Enoxaparin 40 mg Syringe SC SCH (09:00)
--- NOTE | 2016-12-21 10:08 | CP.PCM.PN ---
Subjective - Date & Time of Evaluation Date of Evaluation: 12/21/16 Time of Evaluation: 10:04 - Subjective Subjective: General Surgery - Dr. Mathews Pt S&E. JEMIMA. Pt complains of mild abdominal pain. She is tolerating small amounts of regular diet and having BMs she describes as diarrhea. Figueroa drain w / serous drainage. Packing changed to RUQ. No F/C, SOb/Cp. Objective - Vital Signs/Intake and Output Vital Signs (last 24 hours): Temp Pulse Resp BP Pulse Ox 98.3 F 70 18 142/86 96 12/21/16 07:53 12/21/16 07:54 12/21/16 07:53 12/21/16 07:53 12/21/16 07:53 Intake and Output: 12/21/16 12/21/16 06:59 18:59 Intake Total 560 Output Total 65 Balance 495 - Medications Medications: Current Medications Acetaminophen (Tylenol 325mg Tab) 325 mg PO Q6 PRN PRN Reason: Fever >100.4 F Last Admin: 12/17/16 01:41 Dose: 325 mg Diphenhydramine HCl (Benadryl) 25 mg IVP Q6H PRN PRN Reason: Itching / Pruritus Last Admin: 12/19/16 14:15 Dose: 25 mg Enoxaparin Sodium (Lovenox) 40 mg SC DAILY [facility] PRN Reason: Protocol Hydromorphone HCl (Dilaudid) 1 mg IVP Q3 PRN PRN Reason: Pain, moderate (4-7) Last Admin: 12/21/16 01:34 Dose: 1 mg Hydromorphone HCl (Dilaudid) 0.5 mg IVP Q4 PRN PRN Reason: Pain, severe (8-10) Metronidazole (Flagyl 500mg/100ml Ns) 100 mls @ 100 mls/hr IVPB Q8 [facility] Last Admin: 12/21/16 01:32 Dose: 100 mls/hr Piperacillin Sod/Tazobactam (Sod 3.375 gm/ Sodium Chloride) 100 mls @ 100 mls/ hr IVPB Q8 [facility] Last Admin: 12/21/16 01:31 Dose: 100 mls/hr Ketorolac Tromethamine (Toradol) 30 mg IVP Q6 [facility] Stop: 12/21/16 16:00 Last Admin: 12/21/16 04:16 Dose: 30 mg - Labs Labs: 12/21/16 05:20 12/21/16 05:20 PT 10.5 SECONDS (9.6-11.2) 12/15/16 10:10 INR 1.01 (0.92-1.08) 12/15/16 10:10 APTT 30.2 SECONDS (23.3-32.5) 12/15/16 10:10 - Constitutional Appears: No Acute Distress - Head Exam Head Exam: ATRAUMATIC, NORMAL INSPECTION - Eye Exam Eye Exam: EOMI, Normal appearance - Respiratory Exam Respiratory Exam: NORMAL BREATHING PATTERN. absent: Respiratory Distress - Cardiovascular Exam Cardiovascular Exam: REGULAR RHYTHM - GI/Abdominal Exam GI & Abdominal Exam: Soft, Tenderness (mild ttp around incisions and drain site) . absent: Distended, Guarding, Rebound Additional comments: packing in RUQ changed - Neurological Exam Neurological Exam: Alert, Oriented x3 - Psychiatric Exam Psychiatric exam: Normal Affect, Normal Mood - Skin Skin Exam: Dry, Intact Assessment and Plan - Assessment and Plan (Free Text) Assessment: 46F POD#4 s/p exploratory laparoscopy w/ Appendectomy, HUGO, abdominal wound debridement Continue Regular diet Encourage OOb/Ambulation Drain to remain in place Packing changes daily Pt is clear for discharge home from surgical standpoint, continue antibiotics and daily packing changes F/U in office with Dr. Mathews in [address] Reid Dailey PGY2
[2016-12-21 12:04] VITALS: O2SAT 97
--- NOTE | 2016-12-21 15:04 | CP.PCM.PN ---
Subjective - Date & Time of Evaluation Date of Evaluation: 12/21/16 Time of Evaluation: 08:02 - Subjective Subjective: Patient seen and examined at bedside with attending. No acute events overnight. Afebrile. Continues with abdominal pain, though improved. Patient tolerating small amounts of regular diet. Complains of diarrhea. No other complaints at this time. Spoke with surgery team as well. Objective - Vital Signs/Intake and Output Vital Signs (last 24 hours): Temp Pulse Resp BP Pulse Ox 98.8 F 85 18 124/77 97 12/21/16 12:03 12/21/16 12:03 12/21/16 12:03 12/21/16 12:03 12/21/16 12:03 Intake and Output: 12/21/16 12/21/16 06:59 18:59 Intake Total 560 Output Total 65 Balance 495 - Medications Medications: Current Medications Acetaminophen (Tylenol 325mg Tab) 325 mg PO Q6 PRN PRN Reason: Fever >100.4 F Last Admin: 12/17/16 01:41 Dose: 325 mg Diphenhydramine HCl (Benadryl) 25 mg IVP Q6H PRN PRN Reason: Itching / Pruritus Last Admin: 12/19/16 14:15 Dose: 25 mg Enoxaparin Sodium (Lovenox) 40 mg SC DAILY [facility] PRN Reason: Protocol Last Admin: 12/21/16 10:06 Dose: 40 mg Hydromorphone HCl (Dilaudid) 1 mg IVP Q3 PRN PRN Reason: Pain, moderate (4-7) Last Admin: 12/21/16 14:42 Dose: 1 mg Hydromorphone HCl (Dilaudid) 0.5 mg IVP Q4 PRN PRN Reason: Pain, severe (8-10) Metronidazole (Flagyl 500mg/100ml Ns) 100 mls @ 100 mls/hr IVPB Q8 [facility] Last Admin: 12/21/16 10:05 Dose: 100 mls/hr Piperacillin Sod/Tazobactam (Sod 3.375 gm/ Sodium Chloride) 100 mls @ 100 mls/ hr IVPB Q8 [facility] Last Admin: 12/21/16 10:04 Dose: 100 mls/hr Ketorolac Tromethamine (Toradol) 30 mg IVP Q6 [facility] Stop: 12/21/16 16:00 Last Admin: 12/21/16 10:09 Dose: 30 mg - Labs Labs: 12/21/16 05:20 12/21/16 05:20 PT 10.5 SECONDS (9.6-11.2) 12/15/16 10:10 INR 1.01 (0.92-1.08) 12/15/16 10:10 APTT 30.2 SECONDS (23.3-32.5) 12/15/16 10:10 - Constitutional Appears: Well, Non-toxic, No Acute Distress - Head Exam Head Exam: NORMAL INSPECTION - Eye Exam Eye Exam: Normal appearance - Neck Exam Neck Exam: Normal Inspection - Respiratory Exam Respiratory Exam: Clear to Ausculation Bilateral, NORMAL BREATHING PATTERN - Cardiovascular Exam Cardiovascular Exam: REGULAR RHYTHM, +S1, +S2. absent: Murmur - GI/Abdominal Exam GI & Abdominal Exam: Soft, Tenderness, Normal Bowel Sounds Additional comments: left drain present with minimal serosangious fluid - Extremities Exam Extremities Exam: Normal Inspection - Neurological Exam Neurological Exam: Alert, Awake, Oriented x3 - Psychiatric Exam Psychiatric exam: Normal Affect, Normal Mood - Skin Skin Exam: Dry, Intact, Normal Color, Warm Assessment and Plan (1) Abdominal pain Assessment & Plan: Continues with abdominal pain though improved Pain control as needed Patient with diarrhea, due to potent antibiotics prior to surgery, will evaluate for possible c. diff colitis Status: Acute (2) S/P appendectomy Assessment & Plan: Surgery following, cleared for discharge with cipro/flagyl and pain meds with f/ u in 1 wk with surgeon PT eval ordered, recommendation for TCU Dispo planning Status: Acute (3) Sepsis Assessment & Plan: Afebrile. No leukocytosis. Status: Resolved
[2016-12-21] MEDS ORDERED: Potassium Chloride 20 mEq ER Tab PO ONE (15:26)
[2016-12-21] MEDS ORDERED: Oxycodone/Acetaminophen 5/325 mg Tab PO PRN ×2 (15:34)
[2016-12-21 16:02] VITALS: BP 114/75; PULSE 70; TEMP 98
[2016-12-21 19:33] VITALS: RESP 18
[2016-12-22] MEDS ORDERED: Potassium Chloride 20 mEq ER Tab PO SCH (09:00)
== END 2016-12-21 18:15 | DRG 856 ==
LOC: H.ER 09:12 → H.ERHOLD 12:00 → UNDOADMIN 14:06 → H.ERHOLD 14:06 → H.TEL 22:17
PROVIDERS: ADMIT Internal Medicine; ATTEND Internal Medicine
PROC: 0DNW4ZZ Release Peritoneum, Percutaneous Endoscopic Approach (ICD-10-PCS; 2016-12-17)
PROC: 0W9F40Z Drainage of Abdominal Wall with Drainage Device, Percutaneous Endoscopic Approach (ICD-10-PCS; principal; 2016-12-17 14:00)
PROC: 0DTJ4ZZ Resection of Appendix, Percutaneous Endoscopic Approach (ICD-10-PCS; 2016-12-17 14:00)
DX: T81.4XXA Infection following a procedure, initial encounter (principal); R65.20 Severe sepsis without septic shock; K35.3 Acute appendicitis with localized peritonitis; L03.311 Cellulitis of abdominal wall; N39.0 Urinary tract infection, site not specified; B95.61 Methicillin susceptible Staphylococcus aureus infection as the cause of diseases classified elsewhere; E87.6 Hypokalemia; N73.6 Female pelvic peritoneal adhesions (postinfective); R19.7 Diarrhea, unspecified

== ENCOUNTER 2016-12-21 15:49 | Inpatient (IN) | payer BC, MEDICAID ==
[2016-12-21 18:26] VITALS: BMI 28.3
[2016-12-21] MEDS ORDERED: DiphenhydrAMINE 50 mg/ml Inj IVP PRN (19:07)
[2016-12-21] MEDS: Oxycodone/Acetaminophen 5/325 mg Tab PO PRN ×2 (19:50→23:48)
[2016-12-21 20:03] VITALS: RESP 20
[2016-12-22] MEDS ORDERED: metroNIDAZOLE 500mg/100ml NS 100 ML IVPB SCH (01:00)
[2016-12-22] MEDS ORDERED: Piperacillin/Tazobact 3.375 GM in Sodium Chloride 0.9% 100 ML IVPB SCH (01:00)
[2016-12-22] MEDS ORDERED: metroNIDAZOLE 500mg/100ml NS IVPB SCH (01:00)
[2016-12-22] MEDS ORDERED: Patient's Own Med (Piperacill/Tazo 3.375gm In Dex [Zosyn 3.375 Gm Iv] 3.375 GM) IVPB SCH (01:00)
[2016-12-22] MEDS: Oxycodone/Acetaminophen 5/325 mg Tab PO PRN ×4 (06:14→21:23)
[2016-12-22 06:49] LABS: HEMATOCRIT 32.6 % (34.0-47.0); MEAN CELL VOLUME 82.6 fl (81.0-99.0); MEAN CORPUSCULAR HGB CONC 32.7 g/dL (33.0-37.0); RED CELL DISTRIBUTION WIDTH 13.2 % (11.5-14.5); WHITE BLOOD COUNT 8.6 K/uL (4.8-10.8)
[2016-12-22 07:06] LABS: ALKALINE PHOSPHATASE 70 U/L (38-126); ALT/SGPT 32 U/L (9-52); AST/SGOT 36 U/L (14-36); BILIRUBIN,TOTAL 0.2 mg/dl (0.2-1.3); BLOOD UREA NITROGEN 5 mg/dl (7-17); CARBON DIOXIDE 28 mmol/L (22-30); CHLORIDE 106 mmol/L (98-107); GFR AFRICAN-AMERICAN > 60; GLUCOSE,RANDOM 92 mg/dL (65-105); POTASSIUM 3.6 MMOL/L (3.6-5.0); SODIUM 142 mmol/l (132-148); TOTAL PROTEIN 6.3 G/DL (6.3-8.2)
[2016-12-22] MEDS: Potassium Chloride 20 mEq ER Tab PO SCH (08:25)
[2016-12-22] MEDS: Enoxaparin 40 mg Syringe SC SCH (08:26)
--- NOTE | 2016-12-22 09:35 | HP ---
____ was admitted to [facility] and had teratoma surgery 10 days before her admission to ___ _ Hospital. The patient started getting abdominal pain 2 days before admission, and patient was admi tted to medical floor for abdominal pain which, after further workup, the patient did not improve so surgical consult and gastroenterology consult was done. Suggestions were followed. The patient unde rwent surgery and was found to have inflamed appendix, and patient underwent appendectomy and patient was being treated with IV antibiotic in medical floor. After being stabilized, patient transferred to transitional care unit for completion of workup and treatment. REVIEW OF SYSTEMS: At this time is positive for her abdominal pain. Review of systems otherwise is negative for headache, dizziness, syncope, loss of consciousness, chest pain, shortness of breath, na usea, vomiting, diarrhea or any new joint or extremity pain. Review of systems of all other organ sy stems is unremarkable. PAST SURGICAL HISTORY: Unremarkable. PERSONAL HISTORY: The patient is currently a nonsmoker, nondrinker, no substance abuse. MEDICATIONS: The patient is on multiple medications which is as per reconciliation sheet, which was reviewed in order. ALLERGIES: The patient is not allergic to any medication. FAMILY HISTORY: Noncontributory. PHYSICAL EXAMINATION: GENERAL: Well-built, well-nourished overweight female in mild discomfort due to pain, but in no acut e distress. VITAL SIGNS: Temperature afebrile, pulse is 88, respirations 18, blood pressure 136/76. HEENT: Pupils reacting to light. No JVD, no thyromegaly, no lymphadenopathy. No nystagmus. Normoc ephalic, atraumatic skull. HEART: S1, S2 normal, regular. No significant murmur, gallop or rub is heard. LUNGS: Show good bilateral air exchange. No rales or rhonchi. ABDOMEN: The patient has ____ generalized minimal tenderness, but no sign of acute abdomen. No guar ding, no rigidity, no rebound. Bowel sounds are plus and normal. EXTREMITIES: No edema, no calf swelling, no tenderness, no acute ischemia. CENTRAL NERVOUS SYSTEM: The patient is alert, awake, oriented x 3. There is no sign of any acute gr oss focal motor or sensory neurological deficit. DIAGNOSTIC DATA: Available diagnostic data reviewed. ADMITTING IMPRESSION: Acute appendicitis, status post ____. PLAN: As ordered. Case and plan discussed with patient. Adam Craven MD cc: [id number] TT: 12/22/2016 09:34:55 mn
[2016-12-22] MEDS: metroNIDAZOLE 500mg/100ml NS 100 ML IVPB SCH ×2 (12:29→21:23)
[2016-12-22] MEDS: Piperacillin/Tazobact 3.375 GM in Sodium Chloride 0.9% 100 ML IVPB SCH ×2 (12:33→21:28)
--- NOTE | 2016-12-22 12:52 | CP.PCM.PN ---
Subjective - Date & Time of Evaluation Date of Evaluation: 12/22/16 Time of Evaluation: 12:49 - Subjective Subjective: General Surgery - Dr. Mathews Pt S&E in TCU. Pt is doing well postoperatively. She has been ambulating and tolerating regular diet. Packing to R abdominal wound was changed at bedside. Figueroa drain remains w/ serous drainage. No F/C, SOB/Cp. Objective - Vital Signs/Intake and Output Vital Signs (last 24 hours): Temp Pulse Resp BP Pulse Ox 98.1 F 64 20 119/67 99 12/22/16 08:00 12/22/16 08:00 12/22/16 08:00 12/22/16 08:00 12/22/16 08:00 - Medications Medications: Current Medications Acetaminophen (Tylenol 325mg Tab) 325 mg PO Q6 PRN PRN Reason: Fever >100.4 F Diphenhydramine HCl (Benadryl) 25 mg IVP Q6 PRN PRN Reason: Itching / Pruritus Enoxaparin Sodium (Lovenox) 40 mg SC DAILY [facility] PRN Reason: Protocol Last Admin: 12/22/16 08:26 Dose: 40 mg Metronidazole (Flagyl 500mg/100ml Ns) 100 mls @ 100 mls/hr IVPB Q8@0500,1300, 2100 [facility] Last Admin: 12/22/16 12:29 Dose: 100 mls/hr Piperacillin Sod/Tazobactam (Sod 3.375 gm/ Sodium Chloride) 100 mls @ 100 mls/ hr IVPB Q8@0500,1300,2100 [facility] Last Admin: 12/22/16 12:33 Dose: 100 mls/hr Oxycodone/Acetaminophen (Percocet 5/325 Mg Tab) 1 tab PO Q4 PRN PRN Reason: Pain, moderate (4-7) Stop: 12/24/16 19:00 Last Admin: 12/22/16 11:26 Dose: 1 tab Oxycodone/Acetaminophen (Percocet 5/325 Mg Tab) 2 tab PO Q6 PRN PRN Reason: Pain, severe (8-10) Stop: 12/24/16 19:00 Potassium Chloride (K-Dur 20 Meq Er Tab) 20 meq PO DAILY [facility] Last Admin: 12/22/16 08:25 Dose: 20 meq - Labs Labs: 12/22/16 06:41 12/22/16 06:41 - Constitutional Appears: No Acute Distress - Head Exam Head Exam: ATRAUMATIC, NORMAL INSPECTION, NORMOCEPHALIC - Eye Exam Eye Exam: Normal appearance - Respiratory Exam Respiratory Exam: NORMAL BREATHING PATTERN. absent: Respiratory Distress - Cardiovascular Exam Cardiovascular Exam: REGULAR RHYTHM - GI/Abdominal Exam GI & Abdominal Exam: Soft. absent: Distended, Firm, Guarding, Rigid, Tenderness Additional comments: abdominal wound w/ packing, changed, clean dressing applied, incisons C/D/I with steristrips. Figueroa drain with serous drainage - Neurological Exam Neurological Exam: Alert, Oriented x3 - Psychiatric Exam Psychiatric exam: Normal Affect, Normal Mood - Skin Skin Exam: Dry, Intact Assessment and Plan - Assessment and Plan (Free Text) Assessment: 46F POD#5 s/p exploratory laparoscopy w/ Appendectomy, HUGO, abdominal wound debridement Continue Regular diet Encourage OOB/Ambulation Physical therapy Care as per Primary team Drain to remain in place Continue Abx and daily packing changes Pt will continue packing changes at home upon discharge LOI Dailey PGY2
--- NOTE | 2016-12-22 18:17 | CP.PCM.CON ---
History of Present Illness - History of Present Illness History of Present Illness: 46F POD#5 s/p exploratory laparoscopy w/ Appendectomy, HUGO, abdominal wound debridement admitted with sepsis s/p drainage cultures + MSSA cont rx wound care Review of Systems - Constitutional Constitutional: As Per HPI, Anorexia - EENT Eyes: absent: As Per HPI, Blind Spots, Blurred Vision, Change in Vision, Decreased Night Vision, Diplopia, Discharge, Dry Eye, Exophthalmos, Floaters, Irritation, Itchy Eyes, Loss of Peripheral Vision, Pain, Photophobia, Requires Corrective Lenses, Sees Flashes, Spots in Vision, Tunnel Vision, Other Visual Disturbances, Loss of Vision, Other Ears: absent: As Per HPI, Decreased Hearing, Ear Discharge, Ear Pain, Tinnitus, Abnormal Hearing, Disequilibrium, Dizziness, Other Nose/Mouth/Throat: absent: As Per HPI, Epistaxis, Nasal Congestion, Nasal Discharge, Nasal Obstruction, Nasal Trauma, Nose Pain, Post Nasal Drip, Sinus Pain, Sinus Pressure, Bleeding Gums, Change in Voice, Dental Pain, Dry Mouth, Dysphagia, Halitosis, Hoarsness, Lip Swelling, Mouth Lesions, Mouth Pain, Odynophagia, Sore Throat, Throat Swelling, Tongue Swelling, Facial Pain, Neck Pain, Neck Mass, Other - Breasts Breasts: absent: As Per HPI, Change in Shape, Mass, Pain, Nipple Discharge, Nipple Inversion, Skin Changes, Swelling, Other - Cardiovascular Cardiovascular: absent: As Per HPI, Acrocyanosis, Chest Pain, Chest Pain at Rest , Chest Pain with Activity, Claudication, Diaphoresis, Dyspnea, Dyspnea on Exertion, Edema, Irregular Heart Rhythm, Pain Radiating to Arm/Neck/Jaw, Leg Edema, Leg Ulcers, Lightheadedness, Orthopnea, Palpitations, Paroxysmal Nocturnal Dyspnea, Pedal Edema, Radiating Pain, Rapid Heart Rate, Slow Heart Rate, Syncope, Other - Respiratory Respiratory: absent: As Per HPI, Cough, Dyspnea, Hemoptysis, Dyspnea on Exertion , Wheezing, Snoring, Stridor, Pain on Inspiration, Chest Congestion, Excessive Mucous Production, Change in Mucous Color, Pain with Coughing, Other - Gastrointestinal Gastrointestinal: As Per HPI - Genitourinary Genitourinary: absent: As Per HPI, Change in Urinary Stream, Difficulty Urinating, Dysuria, Flank Pain, Hematuria, Pyuria, Nocturia, Urinary Incontinence, Urinary Frequency, Urinary Hesitance, Urinary Urgency, Voiding Freq/Small Amts, Freq UTI, Hx Renal/Bladder Calculi, Hx /Renal Surgery, Bladder Distension, Other - Reproductive: Female Reproductive:Female: absent: As Per HPI, Amenorrhea, Amenorrhea/ Control, Currently Menstual, Cycle <21 Days, Cycle >35 Days, Cycle Variable, Menses 1-7 Days, Menses >/= 8 Days, Menses Variable, Cycle > 4 Weeks Between, No Menses for 6 Months, Heavy Menses, Light Menses, Normal Menses, Spotting Between Cycles , S/P Hysterectomy, Menopausal, Post Menopausal, Premenarche, Abnormal Vaginal Bleeding, Dysmenorrhea, Dyspareunia, Genital Lesions, Genital Pruritis, Pelvic Pain, Prolapse Symptoms, Sexual Dysfunction, Vaginal Discharge, Vaginal Dryness , Vaginal Odor, Vaginal Pruritis, Other - Menstruation Menstruation: absent: As Per HPI, Amenorrhea, Amenorrhea/ Control, Currently Menstual, Cycle <21 Days, Cycle >35 Days, Cycle Variable, Menses 1-7 Days, Menses >/= 8 Days, Menses Variable, Cycle > 4 Weeks Between, No Menses for 6 Months, Heavy Menses, Light Menses, Normal Menses, Spotting Between Cycles , S/P Hysterectomy, Menopausal, Post Menopausal, Premenarche, Abnormal Vaginal Bleeding, Dysmenorrhea, Other - Musculoskeletal Musculoskeletal: absent: As Per HPI, Abnormal Gait, Arthralgias, Atrophy, Back Pain, Deformity, Joint Swelling, Limited Range of Motion, Loss of Height, Muscle Cramps, Muscle Weakness, Myalgias, Neck Pain, Numbness, Radiating Pain into Limb, Stiffness, Tingling, Other - Integumentary Integumentary: As Per HPI - Neurological Neurological: absent: As Per HPI, Abnormal Gait, Abnormal Hearing, Abnormal Movements, Abnormal Speech, Behavioral Changes, Burning Sensations, Confusion, Convulsions, Disequilibrium, Dizziness, Numbness, Focal Weakness, Frequent Falls , Headaches, Lack of Coordination, Loss of Vision, Memory Loss, Paresthesias, Radicular Pain, Restless Legs, Sensory Deficit, Syncope, Tingling, Tremor, Vertigo, Weakness, Other Visual Disturbances, Other - Psychiatric Psychiatric: absent: As Per HPI, Abnormal Sleep Pattern, Anhedonia, Anxiety, Auditory Hallucinations, Behavioral Changes, Change in Appetite, Change in Libido, Confusion, Depression, Difficulty Concentrating, Hallucinations, Homicidal Ideation, Hopelessness, Irritability, Memory Loss, Mood Swings, Panic Attacks, Paranoia, Suicidal Ideation, Visual Hallucinations, Tactile Hallucinations, Other - Endocrine Endocrine: absent: As Per HPI, Change in Body Appearance, Change in Libido, Cold Intolorance, Deepening of Voice, Excessive Sweating, Fatigue, Flushing, Heat Intolorance, Increase in Ring/Shoe/Hat Size, Palpitations, Polydipsia, Polyphagia, Polyuria, Other - Hematologic/Lymphatic Hematologic: absent: As Per HPI, Easy Bleeding, Easy Bruising, Lymphadenopathy, Other Past Patient History - Past Medical History & Family History Past Medical History?: No - Past Social History Smoking Status: Never Smoked - HEMATOLOGICAL/ONCOLOGICAL Hx AIDS: No Hx Human Immunodeficiency Virus (HIV): No - MUSCULOSKELETAL/RHEUMATOLOGICAL Hx Falls: No - GENITOURINARY/GYNECOLOGICAL Hx Urinary Tract Infection: Yes - PSYCHIATRIC Hx Substance Use: No - SURGICAL HISTORY Hx Surgeries: Yes Hx Appendectomy: Yes Hx Section: Yes Hx Cholecystectomy: Yes Other/Comment: bilateral ankle sx, spine surgery, abd'l sx - ANESTHESIA Hx Anesthesia: Yes Hx Anesthesia Reactions: No Meds Allergies/Adverse Reactions: Allergies Allergy/AdvReac Type Severity Reaction Status Date / Time No Known Allergies Allergy Verified 12/21/16 18:23 - Medications Medications: Current Medications Acetaminophen (Tylenol 325mg Tab) 325 mg PO Q6 PRN PRN Reason: Fever >100.4 F Diphenhydramine HCl (Benadryl) 25 mg IVP Q6 PRN PRN Reason: Itching / Pruritus Enoxaparin Sodium (Lovenox) 40 mg SC DAILY [facility] PRN Reason: Protocol Last Admin: 12/22/16 08:26 Dose: 40 mg Metronidazole (Flagyl 500mg/100ml Ns) 100 mls @ 100 mls/hr IVPB Q8@0500,1300, 2100 [facility] Last Admin: 12/22/16 12:29 Dose: 100 mls/hr Piperacillin Sod/Tazobactam (Sod 3.375 gm/ Sodium Chloride) 100 mls @ 100 mls/ hr IVPB Q8@0500,1300,2100 [facility] Last Admin: 12/22/16 12:33 Dose: 100 mls/hr Oxycodone/Acetaminophen (Percocet 5/325 Mg Tab) 1 tab PO Q4 PRN PRN Reason: Pain, moderate (4-7) Stop: 12/24/16 19:00 Last Admin: 12/22/16 11:26 Dose: 1 tab Oxycodone/Acetaminophen (Percocet 5/325 Mg Tab) 2 tab PO Q6 PRN PRN Reason: Pain, severe (8-10) Stop: 12/24/16 19:00 Last Admin: 12/22/16 16:49 Dose: 2 tab Potassium Chloride (K-Dur 20 Meq Er Tab) 20 meq PO DAILY [facility] Last Admin: 12/22/16 08:25 Dose: 20 meq Physical Exam - Constitutional Appears: Non-toxic, Chronically Ill - Head Exam Head Exam: NORMOCEPHALIC - Eye Exam Eye Exam: PERRL. absent: Scleral icterus - ENT Exam ENT Exam: Mucous Membranes Dry - Neck Exam Neck exam: Negative for: Lymphadenopathy - Respiratory Exam Respiratory Exam: Decreased Breath Sounds, Rhonchi - Cardiovascular Exam Cardiovascular Exam: REGULAR RHYTHM, +S1, +S2 - GI/Abdominal Exam GI & Abdominal Exam: Diminished Bowel Sounds, Distended, Guarding, Soft. absent : Pulsatile Mass, Rebound, Rigid Additional comments: drain in place wounds noted - Rectal Exam Rectal Exam: Deferred - Exam Exam: NORMAL INSPECTION - Extremities Exam Extremities exam: Positive for: pedal pulses present. Negative for: calf tenderness, pedal edema, tenderness - Back Exam Back exam: absent: CVA tenderness (L), CVA tenderness (R), paraspinal tenderness - Neurological Exam Neurological exam: Alert, CN II-XII Intact, Oriented x3, Reflexes Normal - Psychiatric Exam Psychiatric exam: Anxious - Skin Skin Exam: Dry Results - Vital Signs Recent Vital Signs: Last Vital Signs Temp 97.2 F L 12/22/16 16:16 Pulse 76 12/22/16 16:16 Resp 20 12/22/16 16:16 BP 99/56 L 12/22/16 16:16 Pulse Ox 99 12/22/16 16:16 - Labs Result Diagrams: 12/22/16 06:41 12/22/16 06:41 Labs: Laboratory Results - last 24 hr 12/22/16 12/22/16 06:41 06:41 WBC 8.6 RBC 3.95 Hgb 10.7 L Hct 32.6 L MCV 82.6 MCH 27.0 MCHC 32.7 L RDW 13.2 Plt Count 424 H Sodium 142 Potassium 3.6 Chloride 106 Carbon Dioxide 28 Anion Gap 12 BUN 5 L Creatinine 0.5 L Est GFR ( Amer) > 60 Est GFR (Non-Af Amer) > 60 Random Glucose 92 Calcium 9.0 Total Bilirubin 0.2 AST 36 D ALT 32 Alkaline Phosphatase 70 Total Protein 6.3 Albumin 3.1 L Globulin 3.2 Albumin/Globulin Ratio 1.0 Assessment & Plan (1) Abdominal pain Status: Acute (2) Abscess after procedure Status: Acute (3) Peritonitis Status: Acute - Assessment and Plan (Free Text) Assessment: cont iv rx and wound care
[2016-12-23] MEDS: Oxycodone/Acetaminophen 5/325 mg Tab PO PRN ×6 (00:21→19:45)
[2016-12-23] MEDS: metroNIDAZOLE 500mg/100ml NS 100 ML IVPB SCH ×3 (04:59→20:37)
[2016-12-23] MEDS: Piperacillin/Tazobact 3.375 GM in Sodium Chloride 0.9% 100 ML IVPB SCH ×3 (05:00→21:32)
--- NOTE | 2016-12-23 07:45 | PN ---
DATE: 12/23/2016 The patient seen and examined. Interim events noted. The patient remains in transitional care unit. Consults noted, appreciated. Infectious disease and surgery followup and interventions noted and a ppreciated. The patient still complains of pain but it is slightly better. But according to the [facility] staff, patient did have complaint ____. PHYSICAL EXAMINATION: GENERAL: The patient is in no acute distress. VITAL SIGNS: Stable. HEART: S1, S2 normal, regular. LUNGS: Good bilateral air entry. ABDOMEN: Soft, nontender. No sign of acute abdomen. No guarding, no rigidity, no rebound. EXTREMITIES: No calf swelling, no tenderness, no acute ischemia. CENTRAL NERVOUS SYSTEM: Essentially unchanged. DIAGNOSTIC DATA: Available diagnostic data reviewed. Overall, patient's general condition is stable and slowly improving. PLAN: As ordered. Adam Craven MD cc: [id number] TT: 12/23/2016 07:44:49 Confirmation # [id number] Dictation # [id number] [email or web address]
[2016-12-23] MEDS: Enoxaparin 40 mg Syringe SC SCH (08:56)
[2016-12-23] MEDS: Potassium Chloride 20 mEq ER Tab PO SCH (08:56)
--- NOTE | 2016-12-23 16:52 | CP.PCM.PN ---
Subjective - Date & Time of Evaluation Date of Evaluation: 12/23/16 Time of Evaluation: 07:45 - Subjective Subjective: Pt seen and examined. Mild abdominal pain at abdominal wound site. Tolerating diet. No acute events over night. Objective - Vital Signs/Intake and Output Vital Signs (last 24 hours): Temp Pulse Resp BP Pulse Ox 97.9 F 75 20 117/65 97 12/23/16 16:40 12/23/16 16:40 12/23/16 16:40 12/23/16 16:40 12/23/16 16:40 Intake and Output: 12/23/16 12/23/16 06:59 18:59 Output Total 10 Balance -10 - Medications Medications: Current Medications Acetaminophen (Tylenol 325mg Tab) 325 mg PO Q6 PRN PRN Reason: Fever >100.4 F Diphenhydramine HCl (Benadryl) 25 mg IVP Q6 PRN PRN Reason: Itching / Pruritus Enoxaparin Sodium (Lovenox) 40 mg SC DAILY [facility] PRN Reason: Protocol Last Admin: 12/23/16 08:56 Dose: 40 mg Metronidazole (Flagyl 500mg/100ml Ns) 100 mls @ 100 mls/hr IVPB Q8@0500,1300, 2100 [facility] Last Admin: 12/23/16 12:01 Dose: 100 mls/hr Piperacillin Sod/Tazobactam (Sod 3.375 gm/ Sodium Chloride) 100 mls @ 100 mls/ hr IVPB Q8@0500,1300,2100 [facility] Last Admin: 12/23/16 13:03 Dose: 100 mls/hr Ketorolac Tromethamine (Toradol) 10 mg PO Q12 [facility] Last Admin: 12/23/16 10:25 Dose: 10 mg Oxycodone/Acetaminophen (Percocet 5/325 Mg Tab) 1 tab PO Q4 PRN PRN Reason: Pain, moderate (4-7) Stop: 12/24/16 19:00 Last Admin: 12/23/16 05:26 Dose: 1 tab Oxycodone/Acetaminophen (Percocet 5/325 Mg Tab) 2 tab PO Q4 PRN PRN Reason: Pain, severe (8-10) Stop: 12/26/16 17:01 Last Admin: 12/23/16 14:11 Dose: 2 tab Potassium Chloride (K-Dur 20 Meq Er Tab) 20 meq PO DAILY [facility] Last Admin: 12/23/16 08:56 Dose: 20 meq - Labs Labs: 12/22/16 06:41 12/22/16 06:41 - Constitutional Appears: No Acute Distress - Head Exam Head Exam: NORMOCEPHALIC - Eye Exam Eye Exam: Normal appearance - ENT Exam ENT Exam: Mucous Membranes Moist - Respiratory Exam Respiratory Exam: NORMAL BREATHING PATTERN - Cardiovascular Exam Cardiovascular Exam: +S1, +S2 - GI/Abdominal Exam GI & Abdominal Exam: Soft. absent: Tenderness - Neurological Exam Neurological Exam: Alert, Awake, Oriented x3 - Psychiatric Exam Psychiatric exam: Normal Mood - Skin Skin Exam: Dry, Intact, Warm Assessment and Plan - Assessment and Plan (Free Text) Assessment: 46F POD#6 s/p exploratory laparoscopy w/ Appendectomy, HUGO, abdominal wound debridement Abdominal drain removed Packing changed Continue Regular diet Encourage OOB/Ambulation Physical therapy Care as per Primary team Continue Abx Daily packing changes per nursing Pt will continue packing changes at home upon discharge Will sign off, reconsult as necessary, thank you. LOI Mathews
[2016-12-24] MEDS: metroNIDAZOLE 500mg/100ml NS 100 ML IVPB SCH ×3 (04:30→20:52)
[2016-12-24] MEDS: Piperacillin/Tazobact 3.375 GM in Sodium Chloride 0.9% 100 ML IVPB SCH ×3 (05:40→20:53)
[2016-12-24] MEDS: Oxycodone/Acetaminophen 5/325 mg Tab PO PRN ×3 (07:04→17:37)
[2016-12-24] MEDS: Potassium Chloride 20 mEq ER Tab PO SCH (08:23)
[2016-12-24] MEDS: Enoxaparin 40 mg Syringe SC SCH (08:23)
--- NOTE | 2016-12-24 09:20 | PN ---
DATE: 12/24/2016 The patient seen and examined. Interim events noted. Consults noted and appreciated. Surgical foll owup and intervention noted and appreciated. The patient remains in transitional care unit. The pat ient is awake, responsive, feels okay. Pain is present but is getting better and tolerating food. A lso walking around, moving bowels. No chest pain, no shortness of breath. PHYSICAL EXAMINATION: GENERAL: The patient is in no acute distress. VITAL SIGNS: Stable. HEART: S1, S2 normal, regular. LUNGS: Good bilateral air entry. ABDOMEN: Soft, nontender. No sign of acute abdomen. No guarding, no rigidity, no rebound. EXTREMITIES: No edema, no calf swelling, no tenderness, no acute ischemia. CENTRAL NERVOUS SYSTEM: Essentially unchanged. DIAGNOSTIC DATA: Available diagnostic data reviewed. Overall, patient's general condition is slowly improving. PLAN: As ordered. Adam Craven MD cc: [id number] TT: 12/24/2016 09:19:04 Confirmation # [id number] Dictation # [id number] charlene
--- NOTE | 2016-12-24 14:12 | CP.PCM.PN ---
Subjective - Date & Time of Evaluation Date of Evaluation: 12/24/16 Time of Evaluation: 08:00 - Subjective Subjective: wounds healing less drainage Objective - Vital Signs/Intake and Output Vital Signs (last 24 hours): Temp Pulse Resp BP Pulse Ox 98.1 F 63 20 126/73 98 12/24/16 08:12 12/24/16 08:12 12/24/16 08:12 12/24/16 08:12 12/24/16 08:12 - Medications Medications: Current Medications Acetaminophen (Tylenol 325mg Tab) 325 mg PO Q6 PRN PRN Reason: Fever >100.4 F Diphenhydramine HCl (Benadryl) 25 mg IVP Q6 PRN PRN Reason: Itching / Pruritus Enoxaparin Sodium (Lovenox) 40 mg SC DAILY [facility] PRN Reason: Protocol Last Admin: 12/24/16 08:23 Dose: 40 mg Metronidazole (Flagyl 500mg/100ml Ns) 100 mls @ 100 mls/hr IVPB Q8@0500,1300, 2100 [facility] Last Admin: 12/24/16 12:46 Dose: 100 mls/hr Piperacillin Sod/Tazobactam (Sod 3.375 gm/ Sodium Chloride) 100 mls @ 100 mls/ hr IVPB Q8@0500,1300,2100 [facility] Last Admin: 12/24/16 12:46 Dose: 100 mls/hr Ketorolac Tromethamine (Toradol) 10 mg PO Q12 [facility] Last Admin: 12/24/16 08:23 Dose: 10 mg Oxycodone/Acetaminophen (Percocet 5/325 Mg Tab) 1 tab PO Q4 PRN PRN Reason: Pain, moderate (4-7) Stop: 12/24/16 19:00 Last Admin: 12/23/16 05:26 Dose: 1 tab Oxycodone/Acetaminophen (Percocet 5/325 Mg Tab) 2 tab PO Q4 PRN PRN Reason: Pain, severe (8-10) Stop: 12/26/16 17:01 Last Admin: 12/24/16 12:45 Dose: 2 tab Potassium Chloride (K-Dur 20 Meq Er Tab) 20 meq PO DAILY [facility] Last Admin: 12/24/16 08:23 Dose: 20 meq - Labs Labs: 12/22/16 06:41 12/22/16 06:41 - Constitutional Appears: Non-toxic, Cachectic, Chronically Ill - Head Exam Head Exam: NORMOCEPHALIC - Eye Exam Eye Exam: PERRL. absent: Scleral icterus - ENT Exam ENT Exam: Mucous Membranes Dry - Neck Exam Neck Exam: absent: Lymphadenopathy - Respiratory Exam Respiratory Exam: Decreased Breath Sounds, Clear to Ausculation Bilateral - Cardiovascular Exam Cardiovascular Exam: REGULAR RHYTHM, +S1, +S2 - GI/Abdominal Exam GI & Abdominal Exam: Distended, Soft. absent: Tenderness - Rectal Exam Rectal Exam: Deferred - Exam Exam: NORMAL INSPECTION - Extremities Exam Extremities Exam: absent: Pedal Edema - Back Exam Back Exam: absent: CVA tenderness (L), CVA tenderness (R) - Neurological Exam Neurological Exam: Alert, Awake, Oriented x3 Assessment and Plan (1) Abdominal pain Status: Acute (2) Abscess after procedure Status: Acute (3) Peritonitis Status: Acute
[2016-12-25] MEDS: Oxycodone/Acetaminophen 5/325 mg Tab PO PRN ×3 (00:25→19:40)
[2016-12-25] MEDS: Piperacillin/Tazobact 3.375 GM in Sodium Chloride 0.9% 100 ML IVPB SCH ×3 (05:09→21:48)
[2016-12-25] MEDS: metroNIDAZOLE 500mg/100ml NS 100 ML IVPB SCH ×3 (05:10→21:47)
--- NOTE | 2016-12-25 08:15 | PN ---
DATE: 12/25/2016 The patient seen and examined. Interim events noted. Consults noted, appreciated. The patient daylin ins in transitional care unit for requiring of narcotic pain management. She has abdominal pain, alt mel it seems to be getting better. Tolerating food well, moving bowels. No chest pain, no shortne ss of breath. PHYSICAL EXAMINATION: GENERAL: The patient is in no acute distress. VITAL SIGNS: Stable. HEART: S1, S2 normal, regular. LUNGS: Good bilateral air exchange. ABDOMEN: Soft, nontender. EXTREMITIES: No edema, no calf swelling, no tenderness, no acute ischemia. CENTRAL NERVOUS SYSTEM: Essentially unchanged. DIAGNOSTIC DATA: Available diagnostic data reviewed. Overall, the patient is slowly improving, but still has significant abdominal pain. PLAN: As ordered. Case and plan discussed with patient. Adam Craven MD cc: [id number] TT: 12/25/2016 08:14:41 Confirmation # [id number] Dictation # [id number] tn
[2016-12-25] MEDS: Potassium Chloride 20 mEq ER Tab PO SCH (08:47)
[2016-12-25] MEDS: Enoxaparin 40 mg Syringe SC SCH (08:48)
[2016-12-26] MEDS: Oxycodone/Acetaminophen 5/325 mg Tab PO PRN ×4 (00:02→21:12)
[2016-12-26] MEDS: metroNIDAZOLE 500mg/100ml NS 100 ML IVPB SCH ×3 (06:00→21:13)
[2016-12-26] MEDS: Piperacillin/Tazobact 3.375 GM in Sodium Chloride 0.9% 100 ML IVPB SCH ×3 (06:02→21:14)
[2016-12-26] MEDS ORDERED: Oxycodone/Acetaminophen 5/325 mg Tab PO PRN (06:34)
[2016-12-26 08:05] LABS: MEAN CELL VOLUME 82.8 fl (81.0-99.0); MEAN CORPUSCULAR HEMOGLOBIN 26.5 pg (27.0-31.0); RED CELL DISTRIBUTION WIDTH 13.5 % (11.5-14.5)
[2016-12-26 08:25] LABS: ALKALINE PHOSPHATASE 70 U/L (38-126); ALT/SGPT 40 U/L (9-52); AST/SGOT 23 U/L (14-36); BILIRUBIN,TOTAL 0.2 mg/dl (0.2-1.3); BLOOD UREA NITROGEN 17 mg/dl (7-17); CALCIUM 9.6 mg/dL (8.4-10.2); CARBON DIOXIDE 24 mmol/L (22-30); CHLORIDE 104 mmol/L (98-107); GFR AFRICAN-AMERICAN > 60; GLUCOSE,RANDOM 88 mg/dL (65-105); POTASSIUM 4.6 MMOL/L (3.6-5.0); SODIUM 139 mmol/l (132-148); TOTAL PROTEIN 7.6 G/DL (6.3-8.2)
[2016-12-26] MEDS: Potassium Chloride 20 mEq ER Tab PO SCH (08:43)
--- NOTE | 2016-12-26 09:02 | PN ---
DATE: 12/26/2016 The patient seen and examined. Interim events noted. The patient remains in transitional care unit with chief complaint of pain, although was able to stretch Percocet for 6 hours but did need to take again today morning. Pain is adequately controlled on Percocet. PHYSICAL EXAMINATION: GENERAL: The patient is in no acute distress. VITAL SIGNS: Stable. HEART: S1, S2 normal, regular. LUNGS: Good bilateral air entry. ABDOMEN: Soft, nontender, no sign of acute abdomen. No guarding, no rigidity, no rebound. Bowel so unds are plus. EXTREMITIES: No edema, no calf swelling, no tenderness, ____ ischemia. CENTRAL NERVOUS SYSTEM: Essentially unchanged. DIAGNOSTIC DATA: Available diagnostic data reviewed. Overall, patient is slowly improving, still has significant pain. Plan as ordered. Adam Craven MD cc: [id number] TT: 12/26/2016 09:01:04 Confirmation # [id number] Dictation # [id number] sn
[2016-12-26] MEDS: Enoxaparin 40 mg Syringe SC SCH (10:22)
[2016-12-27] MEDS: metroNIDAZOLE 500mg/100ml NS 100 ML IVPB SCH ×3 (05:14→20:12)
[2016-12-27] MEDS: Piperacillin/Tazobact 3.375 GM in Sodium Chloride 0.9% 100 ML IVPB SCH ×2 (05:15→12:17)
[2016-12-27] MEDS: Oxycodone/Acetaminophen 5/325 mg Tab PO PRN ×3 (05:50→21:19)
[2016-12-27 07:21] LABS: HEMATOCRIT 35.8 % (34.0-47.0); MEAN CELL VOLUME 82.4 fl (81.0-99.0); MEAN CORPUSCULAR HEMOGLOBIN 26.7 pg (27.0-31.0); MEAN CORPUSCULAR HGB CONC 32.4 g/dL (33.0-37.0); RED CELL DISTRIBUTION WIDTH 13.7 % (11.5-14.5); WHITE BLOOD COUNT 8.8 K/uL (4.8-10.8)
[2016-12-27 07:51] LABS: ALKALINE PHOSPHATASE 79 U/L (38-126); ALT/SGPT 36 U/L (9-52); AST/SGOT 20 U/L (14-36); BILIRUBIN,TOTAL 0.2 mg/dl (0.2-1.3); BLOOD UREA NITROGEN 17 mg/dl (7-17); CALCIUM 9.5 mg/dL (8.4-10.2); CARBON DIOXIDE 22 mmol/L (22-30); CHLORIDE 105 mmol/L (98-107); GFR AFRICAN-AMERICAN > 60; GLUCOSE,RANDOM 89 mg/dL (65-105); POTASSIUM 4.7 MMOL/L (3.6-5.0); SODIUM 139 mmol/l (132-148); TOTAL PROTEIN 7.7 G/DL (6.3-8.2)
[2016-12-27] MEDS: Enoxaparin 40 mg Syringe SC SCH (08:41)
[2016-12-27] MEDS: Potassium Chloride 20 mEq ER Tab PO SCH (08:41)
--- NOTE | 2016-12-27 10:45 | PN ---
DATE: 12/27/2016 The patient seen and examined. Interim events noted. The patient remains in transitional care unit. Still complains of abdominal pain, mainly located to right lower quadrant. No chest pain, no short ness of breath. The patient is tolerating food. Pain is adequately controlled with current pain ___ __. PHYSICAL EXAMINATION: GENERAL: The patient is in no acute distress. VITAL SIGNS: Stable. HEART: S1, S2 normal, regular. LUNGS: Good bilateral air exchange. ABDOMEN: Soft, nontender, except that minimal sensitivity on right lower quadrant around surgical si te, but there is no acute complication of surgery evident objectively. Bowel sounds are plus and nor mal. No guarding, no rigidity, no rebound. EXTREMITIES: No edema, no calf swelling, no tenderness, no acute ischemia. CENTRAL NERVOUS SYSTEM: Essentially unchanged. DIAGNOSTIC DATA: Available reviewed. Overall, patient's general medical condition is stable, although patient does have persistent abdomin al pain. PLAN: As ordered. Case and plan discussed with patient. Will get surgical followup. Adam Craven MD cc: [id number] TT: 12/27/2016 10:45:08 Confirmation # [id number] Dictation # [id number] en
[2016-12-28] MEDS: metroNIDAZOLE 500mg/100ml NS 100 ML IVPB SCH ×2 (05:14→12:26)
[2016-12-28] MEDS: Oxycodone/Acetaminophen 5/325 mg Tab PO PRN ×3 (06:02→19:48)
[2016-12-28] MEDS: Potassium Chloride 20 mEq ER Tab PO SCH (09:20)
[2016-12-28] MEDS: Enoxaparin 40 mg Syringe SC SCH (09:21)
--- NOTE | 2016-12-28 09:55 | PN ---
DATE: 12/28/2016 The patient seen and examined. Interim events noted. The patient remains in transitional care unit on IV antibiotics. Still complains of having abdominal pain, although patient does not seem to be in too much discomfort on entering the room. PHYSICAL EXAMINATION: GENERAL: The patient is in no acute distress. VITAL SIGNS: Stable. HEART: S1, S2 normal, regular. LUNGS: Good bilateral air entry. ABDOMEN: Soft, nontender. No organomegaly, no fluid. Bowel sounds are plus. No sign of acute abdo men. No guarding, no rigidity, no rebound. EXTREMITIES: No edema, no calf swelling, no tenderness, no acute ischemia. CENTRAL NERVOUS SYSTEM: Essentially unchanged. DIAGNOSTIC DATA: Available diagnostic data reviewed. Overall, patient's general medical condition is stable. PLAN: As ordered. Adam Craven MD cc: [id number] TT: 12/28/2016 09:55:12 Confirmation # [id number] Dictation # [id number] charlene
[2016-12-28 20:08] VITALS: PULSE 69
[2016-12-29] MEDS: Oxycodone/Acetaminophen 5/325 mg Tab PO PRN (06:38)
[2016-12-29 08:00] VITALS: BP 107/68; TEMP 98.1; O2SAT 100
--- NOTE | 2016-12-29 08:40 | PN ---
DATE: 12/29/2016 The patient is seen and examined. Interim events noted. The patient remains in transitional care un . The patient feels okay. Still has pain controlled with medications. The patient is ambulatory, doing her ADLs without assistance. No chest pain, no shortness of breath. Abdominal pain is contro lled with current medication. PHYSICAL EXAMINATION: GENERAL: The patient is in no acute distress. VITAL SIGNS: Stable. HEART: S1, S2 normal, regular. LUNGS: Good bilateral air entry. ABDOMEN: Soft, nontender. No organomegaly, no fluid. Bowel sounds are plus. No sign of acute abdo men. No guarding, no rigidity, no rebound. EXTREMITIES: No edema, no calf swelling, no tenderness, no acute ischemia. CENTRAL NERVOUS SYSTEM: Essentially unchanged. DIAGNOSTIC DATA: Available diagnostic data reviewed. Overall, the patient's general medical condition is stable. The patient will be discharged home [facility]. The patient will be followed up by primary care physician, Dr. Wood. Case was discussed with Dr. Witt. PLAN: As ordered. Adam Craven MD cc: [id number] TT: 12/29/2016 08:35:46 Confirmation # [id number] Dictation # [id number] jn
[2016-12-29] MEDS: Potassium Chloride 20 mEq ER Tab PO SCH (08:42)
[2016-12-29] MEDS: Enoxaparin 40 mg Syringe SC SCH (08:43)
--- NOTE | 2016-12-29 08:54 | DS ---
This is a 46-year-old female who was admitted to transitional care unit after treatment on medical fl oor for acute appendicitis requiring surgery and also possible intraabdominal sepsis. The patient wa s treated accordingly. The patient was stabilized and then transferred to transitional care unit whe re the patient was further optimized and completed IV antibiotic. The patient became medically stabl e. ____ and abdominal pain and the patient is being discharged to home today. The patient will be f ollowed up by primary care physician, Dr. Witt, who was informed about the condition of the patien t also. Adam Craven MD cc: [id number] TT: 12/29/2016 08:53:02 tn
== END 2016-12-29 10:30 | disposition home or self-care (01) | DRG 949 ==
LOC: H.TCU 18:28
PROVIDERS: ADMIT Internal Medicine; ATTEND Internal Medicine
PROC: F07Z9ZZ Gait Training/Functional Ambulation Treatment (ICD-10-PCS; principal; 2016-12-21)
PROC: F07L6ZZ Therapeutic Exercise Treatment of Musculoskeletal System - Lower Back / Lower Extremity (ICD-10-PCS; 2016-12-21)
PROC: F08Z4ZZ Home Management Treatment (ICD-10-PCS; 2016-12-21)
PROC: F07K6ZZ Therapeutic Exercise Treatment of Musculoskeletal System - Upper Back / Upper Extremity (ICD-10-PCS; 2016-12-21)
PROC: F07L0ZZ Range of Motion and Joint Mobility Treatment of Musculoskeletal System - Lower Back / Lower Extremity (ICD-10-PCS; 2016-12-21)
PROC: F07K0ZZ Range of Motion and Joint Mobility Treatment of Musculoskeletal System - Upper Back / Upper Extremity (ICD-10-PCS; 2016-12-21)
DX: Z48.815 Encounter for surgical aftercare following surgery on the digestive system (principal); K65.9 Peritonitis, unspecified

== ENCOUNTER 2017-01-26 16:33 | Emergency (ER) | payer BC, MEDICAID ==
[2017-01-26 16:33] VITALS: BMI 28.3
[2017-01-26 16:41] VITALS: RESP 16
--- NOTE | 2017-01-26 16:58 | ED PDOC ---
HPI: Headache Time Seen by Provider: 01/26/17 16:43 Chief Complaint (Nursing): Headache Chief Complaint (Provider): headache, tremors History Per: Patient Additional Complaint(s): 46 female w/ no PMHx presents to ED for evaluation of insomnia, uncontrolled chills and tremors since last night. Patient states head was affected first, now whole body. Denies chest pain, headache, abdominal pain, diarrhea, nausea/ vomiting. Of note: Pt recently had abdominal surgery and was taking Percocet for pain, last pill was taken 2 days ago. PMD: Dr. Gastelum PMHx: Denies PSHx: , Cholecystectomy, oopherectomy, Intrabdominal mass removal, Cervical spine surgery, leg surgery Allergies: Denies Social: Denies tobacco, etoh, drugs Past Medical History Reviewed: Historical Data, Nursing Documentation, Vital Signs Vital Signs: Last Vital Signs Temp 99.9 F H 01/26/17 16:39 Pulse 78 01/26/17 16:39 Resp 16 01/26/17 16:39 BP 140/82 01/26/17 16:39 Pulse Ox 100 01/26/17 16:39 - Medical History PMH: Back Problems Denies: HIV - Surgical History Surgical History: Appendectomy, Back Surgery, Cholecystectomy, - Family History Family History: States: Unknown Family Hx - Living Arrangements Living Arrangements: With Family - Social History Current smoker - smoking cessation education provided: No Alcohol: None Drugs: Denies - Immunization History Hx Tetanus Toxoid Vaccination: No Hx Influenza Vaccination: No Hx Pneumococcal Vaccination: No - Home Medications Home Medications: Ambulatory Orders Medication Instructions Recorded oxyCODONE/Acetaminophen [Percocet 1 tab PO Q4H PRN 12/15/16 5/325 mg Tab] Acetaminophen [Tylenol 325mg tab] 325 mg PO Q6 PRN tab 12/21/16 oxyCODONE/Acetaminophen [Percocet 1 tab PO Q4 PRN 3 Days 12/21/16 5/325 mg Tab] oxyCODONE/Acetaminophen [Percocet 2 tab PO Q6 PRN 3 Days 12/21/16 5/325 mg Tab] metroNIDAZOLE [Flagyl] 500 mg PO Q8 #21 tab 12/29/16 ALPRAZolam [Xanax] 1 mg PO HS #5 tab 01/26/17 - Allergies Allergies/Adverse Reactions: Allergies Allergy/AdvReac Type Severity Reaction Status Date / Time No Known Allergies Allergy Verified 01/26/17 16:36 Review of Systems ROS Statement: Except As Marked, All Systems Reviewed And Found Negative Neurological: Positive for: Other (tremmors) Physical Exam - Reviewed Nursing Documentation Reviewed: Yes Vital Signs Reviewed: Yes - Physical Exam Appears: Positive for: Non-toxic, No Acute Distress, Uncomfortable Head Exam: Positive for: ATRAUMATIC, NORMAL INSPECTION, NORMOCEPHALIC Skin: Positive for: Normal Color, Warm, DRY Eye Exam: Positive for: EOMI, Normal appearance, PERRL ENT: Positive for: Normal ENT Inspection Neck: Positive for: Normal, Painless ROM Cardiovascular/Chest: Positive for: Regular Rate, Rhythm Respiratory: Positive for: CNT, Normal Breath Sounds Gastrointestinal/Abdominal: Positive for: Normal Exam, Bowel Sounds, Soft, Tenderness (RUQ and RLQ, over incision sites from recent Ex lap and appendectomy ) Back: Positive for: Normal Inspection Extremity: Positive for: Normal ROM Neurologic/Psych: Positive for: Alert, Oriented, Other (appears anxious) - Laboratory Results Result Diagrams: 01/26/17 17:42 01/26/17 17:42 - ECG O2 Sat by Pulse Oximetry: 100 Medical Decision Making Medical Decision Making: IV access established and treatment initiated with Ativan and IVF On re-eval, Pt reports tremors have improved. Pt appears more calm. Head CT: Negative Labs resulted and reviewed with Pt who demonstrated full understanding. Pt educated on symptoms of possible narcotic withdrawl. Given Xanax PO qhs to use for the next 3 days. Crisis eval offered, Pt declined Disposition - Clinical Impression Clinical Impression: Withdrawal symptoms, drug or narcotic, Insomnia, Tremor - Patient ED Disposition Is Patient to be Admitted: No - Disposition Disposition: Routine/Home Disposition Time: 18:33 Condition: STABLE Prescriptions: ALPRAZolam [Xanax] 1 mg PO HS #5 tab Instructions: Insomnia (ED) Print Language: SETS[place]
[2017-01-26] MEDS ORDERED: Sodium Chloride 0.9% 1,000 ML IV STA (17:00)
--- NOTE | 2017-01-26 17:34 | CT ---
PROCEDURE: CT HEAD WITHOUT CONTRAST. HISTORY: tremmors, headache COMPARISON: None available. TECHNIQUE: Axial computed tomography images were obtained through the head/brain without intravenous contrast. Radiation dose: Total exam DLP = 1053.27 mGy-cm. This CT exam was performed using one or more of the following dose reduction techniques: Automated exposure control, adjustment of the mA and/or kV according to patient size, and/or use of iterative reconstruction technique. FINDINGS: HEMORRHAGE: No intracranial hemorrhage. BRAIN: No mass effect or edema. No atrophy or chronic microvascular ischemic changes. VENTRICLES: Unremarkable. No hydrocephalus. CALVARIUM: Unremarkable. PARANASAL SINUSES: Unremarkable as visualized. No significant inflammatory changes. MASTOID AIR CELLS: Unremarkable as visualized. No inflammatory changes. OTHER FINDINGS: None. IMPRESSION: Normal CT of the Head.
[2017-01-26 17:46] LABS: BASO % 0.6 % (0.0-2.0); EOS # 0.4 K/uL (0.0-0.7); HEMOGLOBIN 12.8 g/dL (12.0-16.0); LYMPH # 1.6 K/uL (1.0-4.3); LYMPH % 27.3 % (20.0-40.0); MEAN CELL VOLUME 81.2 fl (81.0-99.0); MEAN CORPUSCULAR HEMOGLOBIN 26.8 pg (27.0-31.0); MEAN PLATELET VOLUME 7.7 fl (7.2-11.7); MONO # 0.6 K/uL (0.0-0.8); MONO % 10.7 % (0.0-10.0); NEUT # 3.2 K/uL (1.8-7.0); NEUT % 55.4 % (50.0-75.0); NRBC % 0.1 % (0.0-0.0); RBC 4.78 Mil/uL (3.80-5.20); RED CELL DISTRIBUTION WIDTH 14.2 % (11.5-14.5); WHITE BLOOD COUNT 5.8 K/uL (4.8-10.8)
[2017-01-26 17:48] VITALS: TEMP 99.1
[2017-01-26 17:51] LABS: SQUAMOUS EPITHIAL 3 /hpf (0-5); URINE BILIRUBIN NEGATIVE (NEGATIVE); URINE BLOOD NEGATIVE (NEGATIVE); URINE CLARITY CLEAR (Clear); URINE COLOR STRAW (YELLOW); URINE GLUCOSE (UA) NEG (Normal); URINE LEUKOCYTE ESTERASE NEG Leu/uL (Negative); URINE NITRATE NEGATIVE (NEGATIVE); URINE PROTEIN NEGATIVE (NEGATIVE); URINE UROBILINOGEN 0.2-1.0 mg/dL (0.2-1.0)
[2017-01-26 17:59] LABS: ALB/GLOB RATIO 1.2 (1.0-2.1); ALBUMIN 4.5 g/dL (3.5-5.0); ALT/SGPT 37 U/L (9-52); AST/SGOT 34 U/L (14-36); BLOOD UREA NITROGEN 8 mg/dl (7-17); CALCIUM 9.6 mg/dL (8.4-10.2); GFR AFRICAN-AMERICAN > 60; GFR NON-AFRICAN AMERICAN > 60
[2017-01-26 19:26] VITALS: BP 130/74; PULSE 88; O2SAT 98
--- NOTE | 2017-01-27 08:10 | CARD ---
APPROVED REPORT EKG Measurement Heart [id number] <Conclusion> Normal sinus rhythm Normal ECG
--- NOTE | 2017-01-27 10:47 | RAD ---
PROCEDURE: CHEST RADIOGRAPH, 1 VIEW HISTORY: fever, chills COMPARISON: 12/15/2016. FINDINGS: LUNGS: The lungs are well inflated and clear. PLEURA: No pneumothorax or pleural fluid seen. CARDIOVASCULAR: Normal. OSSEOUS STRUCTURES: No significant abnormalities. Status post ACDF in the lower cervical spine. VISUALIZED UPPER ABDOMEN: Normal. OTHER FINDINGS: None. IMPRESSION: No active pulmonary disease.
== END 2017-01-26 19:26 | disposition home or self-care (01) ==
LOC: H.ER 16:33
DX: F11.23 Opioid dependence with withdrawal (principal); G47.00 Insomnia, unspecified
CPT/HCPCS: 70450; 71010; 80053; 81003; 84484; 85025; 87040; 93005; 96374; 99284; J2060; J7040